=== PATIENT | female | born 1955 | race Caucasian/White ===

== ENCOUNTER 2016-03-13 13:41 | Inpatient (IN) | payer OTHER ==
[2016-03-13 16:01] VITALS: BMI 24.9
--- NOTE | 2016-03-13 17:02 | History and Physical Report ---
History of Present Illnes - History of Present Illness Reason for Visit: Rehab services s/p Right CVA with left sided residual deficets History of Present Illness: 60-year-old white female who on January 31, 2016 developed sudden left-sided weakness associated with slurred speech. Patient was felt to have an acute CVA. Patient was transferred to the trauma. Strokes. On arrival at a strokes. Patient subsequently developed a complete left-sided hemiplegia associated with mental status changes. 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 Patient subsequently underwent an emergent thrombectomy. This was successful. However patient subsequently had an intraventicular and basal ganglia hemorrhage. 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 An EVD was placed for management of her increase intercranial pressure. This was removed on February 06. patient subsequently developing meningitis and was placed on Vancomycin and meropenem which was finished on Feb 16. Patient was transfered to [facility] in [place] for rehab services. Family wishes for the patient to be closeer to home and was transferred to this institution for further rehab services. It is her goal to be able to return home with help from her . - Past Medical History Cardiac: AFIB (intermittent), HTN Heme/Onc: Cancer (right sided breast cancer, in remission for 20 years) Psych: Depression - Past Surgical History Past Surgical History: Other (lumpectomy bilateral, Right tonsilectomy) - Past Social History Smoke: # pack years (20), Quit (trying to quit) Alcohol: None Drugs: None Lives: With Family Domestic Violence: Negative - Health Maintenance Health Maintenance: Cholesterol Influenza Vaccine: Current for this Influenza Season Pneumonia Vaccine: Yes Resuscitation Status: Resusciation Status Resuscitation Status Full Code - Unable to Obtain History Unable to Obtain: No Review of Systems - Review of Systems Constitutional: Fever (feels slighly feverish), Weakness (left side, Upper> Lower extremity). negative: Chills Eyes: pain (right lat abd area). negative: vision change ENT: negative: Ear Pain, Ear Discharge, Nose Pain, Nose Congestion, Mouth Pain, Mouth Swelling Respiratory: negative: Cough, Dry, Shortness of Breath, Hemoptysis, SOB with Excertion, Pleuritic Pain Cardiovascular: negative: Chest Pain, Palpitations, Orthopnea, Light Headedness Gastrointestinal: negative: Nausea, Vomiting, Abdominal Pain, Diarrhea, Constipation, Melena, Hematochezia Genitourinary: negative: Dysuria, Frequency, Incontinence, Hematuria Musculoskeletal: negative: Neck Pain, Back Pain Skin: negative: Rash, Lesions Neurological: Weakness, Incoordination, Change in Speech. negative: Numbness, Confusion, Seizures - Medications/Allergies Allergies/Adverse Reactions: Allergies Allergy/AdvReac Type Severity Reaction Status Date / Time No Known Allergies Allergy Verified 03/13/16 14:58 Home Medications: Home Medications Acetaminophen [Tylenol] 650 mg PO Q4 PRN 03/13/16 Aspirin [Staci] 81 mg PO DAILY 03/13/16 Atorvastatin Calcium 20 mg PO 1700 03/13/16 Bromocriptine Mesylate [Parlodel] 5 mg PO Q8 03/13/16 Cholecalciferol [Vitamin D-3] 5,000 unit PO DAILY 03/13/16 Docusate Sodium [Colace] 100 mg PO DAILY 03/13/16 Gabapentin 300 mg PO TID 03/13/16 Losartan Potassium [Cozaar] 25 mg PO D 03/13/16 Megestrol Acetate [Megace] 40 mg PO D 03/13/16 Nystatin Cream [Mycostatin] 30 gm TP TID 03/13/16 Nystatin Powder [Nystop] 15 gm TP TID 03/13/16 Paroxetine HCl 20 mg PO D 03/13/16 Polyethylene Glycol 3350 [Miralax] 17 gm PO 1100 03/13/16 Tramadol HCl [Ultram] 50 mg PO Q6 PRN 03/13/16 Current Inpatient Medications: Current Inpatient Medications Acetaminophen (Tylenol) 650 mg PO Q4 PRN PRN Reason: PAIN OR TEMPERATURE > 101 Aspirin (Aspirin) [address] [facility] Atorvastatin Calcium (Lipitor) [address] [facility] Cholecalciferol (Vitamin D-3) 5,[address] [facility] Docusate Sodium (Colace) [address] [facility] Gabapentin (Neurontin) [address] [facility] Losartan Potassium (Cozaar) [address] [facility] Megestrol Acetate (Megace) [address] [facility] Nystatin (Mycostatin) appl TP TID [facility] Paroxetine HCl (Paxil) [address] [facility] Polyethylene Glycol (Miralax) 17 gm PO 1100 [facility] Tramadol HCl (Ultram) 50 mg PO Q6 PRN PRN Reason: PAIN Exam - Exam Vital Signs: Vital Signs (72 hours) 12/02/16 12/02/16 14:35 14:54 Temperature 97.5 F L 97.5 F L Pulse Rate [ 76 76 Right Pulse ox] Respiratory 20 20 Rate Blood Pressure 103/62 103/62 [Right Arm] O2 Sat by Pulse 95 95 Oximetry General: Alert, Oriented to Person, Oriented to Place, Oriented to Time, Cooperative. No: No acute distress HEENT: Atraumatic, Mouth Mucous membr. moist/[place], Nose Mucous membr. moist/[place] , Edentulous, Hearing Grossly Normal. No: PERRLA (right pupil enlarged), Pharyngeal Erythema, Tonsillar Exudate, Tonsillar Swelling Neck: Normal Range of Motion. No: Stridor, Rigidity, Lymphadenopathy Carotids: WNL Thyroid: WNL Lungs: Clear to auscultation, Normal air movement, Speaks full Sentences. No: Respiratory Distress, Wheezes, Rales, Rhonchi Cardiovascular: Regular rate, Normal S1, Normal S2, No murmurs. No: Atrial Fib , [place]rail Flutter Murmur: No: Systolic Murmur Abdomen: Normal bowel sounds, Soft, No tenderness, No hepatospenomegaly, No masses Integumentary: Normal, [place], Warm, Normal Turgor Extremities: Normal pulses, Other (clubbing noted). No: No cyanosis, No edema Neurological: Normal speech, Normal tone, Left Sided Weakness (LUE 2/5motor strength with tuckpointer,elbow flex, 3/5elbow extension shoulder girdle; 4/5 LLE) Psych/Mental Status: Mental status NL, Mood NL, Appropriate Affect, Intact Judgment Assessment/Plan - Assessment/Plan (1) Intermittent atrial fibrillation Status: Acute Current Visit: Yes Assessment: Has been advised by neurology that no anticoagulation therapy for one month other then ASA, then will reassess. Patient appears to be in NSR at this time. A fib is beleived to the the precipitating factor for her CVA. (2) Anemia Status: Acute Current Visit: No Qualifiers: Anemia type: unspecified type Qualified Code(s): D64.9 - Anemia, unspecified Assessment: Will recheck CBC on Wednesday and consider further work-up at that time (3) CVA (cerebral vascular accident) Status: Acute Current Visit: No (4) Depression Status: Acute Current Visit: No Qualifiers: Depression Type: major depressive disorder Major depression recurrence: single episode Major depression episode severity: mild Assessment: Patient appears to be doing well at this time with no suicidal thoughts or intent. (5) Dysphagia Status: Acute Current Visit: No (6) Hypertension Status: Acute Current Visit: No Assessment: Will continue home medications and monitor VTE Assessment - RISK FACTOR SCORE VTE RISK FACTOR SCORES: AGE 40-60 YEARS, ANTICIPATED BED CONFINEMENT OR IMMOBILIZATION > 24 HOURS - RISK VTE MODERATE RISK: SCORE OF 2 (RISK PROXIMAL DVT 2-4%) PROPHYAXIS NEEDED (ASA therapy only at this time per neurology recommendations)
[2016-03-13] MEDS: GABAPENTIN 300 MG CAPSULE PO SCH (17:50)
[2016-03-13] MEDS: traMADol HCL 50 MG TABLET PO PRN (17:50)
[2016-03-13] MEDS: ACETAMINOPHEN 325 MG TABLET PO PRN (17:50)
[2016-03-13] MEDS ORDERED: NYSTATIN CREAM 100,000 UNIT/GM 15GM TP SCH (18:00)
[2016-03-13] MEDS: ATORVASTATIN CALCIUM 80 MG TABLET PO SCH (19:50)
[2016-03-14] MEDS: PARoxetine HCL 10 MG TABLET PO SCH (08:49)
[2016-03-14] MEDS: ASPIRIN 81 MG CHEW TAB PO SCH (08:49)
[2016-03-14] MEDS: LOSARTAN POTASSIUM 50 MG TABLET PO SCH (08:49)
[2016-03-14] MEDS: CHOLECALCIFEROL 1,000 UNIT TABLET PO SCH (08:49)
[2016-03-14] MEDS: DOCUSATE SODIUM 100 MG CAPSULE PO SCH (08:50)
[2016-03-14] MEDS: GABAPENTIN 300 MG CAPSULE PO SCH ×3 (08:53→17:28)
[2016-03-14] MEDS ORDERED: NYSTATIN CREAM 100,000 UNIT/GM 15GM TP PRN (08:55)
[2016-03-14] MEDS: MEGESTROL ACETATE 40 MG/ML PO SCH (09:30)
[2016-03-14] MEDS: POLYETHYLENE GLYCOL 3350 17 GM POWD.PACK PO SCH (14:17)
[2016-03-14] MEDS: ACETAMINOPHEN 325 MG TABLET PO PRN (14:20)
[2016-03-14] MEDS: traMADol HCL 50 MG TABLET PO PRN (14:21)
[2016-03-14] MEDS: ATORVASTATIN CALCIUM 80 MG TABLET PO SCH (20:58)
[2016-03-15] MEDS: traMADol HCL 50 MG TABLET PO PRN ×2 (09:25→18:05)
[2016-03-15] MEDS: MEGESTROL ACETATE 40 MG/ML PO SCH (09:26)
[2016-03-15] MEDS: ACETAMINOPHEN 325 MG TABLET PO PRN ×2 (09:26→18:05)
[2016-03-15] MEDS: LOSARTAN POTASSIUM 50 MG TABLET PO SCH (09:31)
[2016-03-15] MEDS: CHOLECALCIFEROL 1,000 UNIT TABLET PO SCH (09:31)
[2016-03-15] MEDS: GABAPENTIN 300 MG CAPSULE PO SCH ×3 (09:31→18:03)
[2016-03-15] MEDS: ASPIRIN 81 MG CHEW TAB PO SCH (09:31)
[2016-03-15] MEDS: PARoxetine HCL 10 MG TABLET PO SCH (09:32)
[2016-03-15] MEDS: DOCUSATE SODIUM 100 MG CAPSULE PO SCH (09:32)
[2016-03-15] MEDS: POLYETHYLENE GLYCOL 3350 17 GM POWD.PACK PO SCH (09:32)
[2016-03-15] MEDS: ATORVASTATIN CALCIUM 80 MG TABLET PO SCH (18:03)
[2016-03-16 06:44] LABS: BASOPHILS % 0.4 (0.0-1.5); LYMPHOCYTES # 1.7 # k/uL (0.6-4.0); MEAN CORPUSCULAR HEMOGLOBIN 25.8 pg (28.0-34.0); MONOCYTES # 0.2 # k/uL (0.0-0.9); MONOCYTES % 3.7 % (0.0-11.0); NEUTROPHILS # 4.6 # k/uL (1.4-7.7)
[2016-03-16 07:09] LABS: eGFR (African) > 60; eGFR (Non-African) > 60
[2016-03-16] MEDS: ACETAMINOPHEN 325 MG TABLET PO PRN ×2 (09:45→17:32)
[2016-03-16] MEDS: traMADol HCL 50 MG TABLET PO PRN ×2 (09:45→17:32)
[2016-03-16] MEDS: LOSARTAN POTASSIUM 50 MG TABLET PO SCH (09:46)
[2016-03-16] MEDS: MEGESTROL ACETATE 40 MG/ML PO SCH (09:46)
[2016-03-16] MEDS: PARoxetine HCL 10 MG TABLET PO SCH (09:46)
[2016-03-16] MEDS: GABAPENTIN 300 MG CAPSULE PO SCH ×3 (09:46→17:32)
[2016-03-16] MEDS: CHOLECALCIFEROL 1,000 UNIT TABLET PO SCH (09:46)
[2016-03-16] MEDS: DOCUSATE SODIUM 100 MG CAPSULE PO SCH (09:46)
[2016-03-16] MEDS: ASPIRIN 81 MG CHEW TAB PO SCH (09:46)
[2016-03-16] MEDS: POLYETHYLENE GLYCOL 3350 17 GM POWD.PACK PO SCH (10:41)
[2016-03-16] MEDS: ATORVASTATIN CALCIUM 80 MG TABLET PO SCH (21:27)
[2016-03-17] MEDS: traMADol HCL 50 MG TABLET PO PRN ×2 (08:00→20:17)
[2016-03-17] MEDS: DOCUSATE SODIUM 100 MG CAPSULE PO SCH (08:01)
[2016-03-17] MEDS: ASPIRIN 81 MG CHEW TAB PO SCH (08:01)
[2016-03-17] MEDS: LOSARTAN POTASSIUM 50 MG TABLET PO SCH (08:01)
[2016-03-17] MEDS: PARoxetine HCL 10 MG TABLET PO SCH (08:01)
[2016-03-17] MEDS: CHOLECALCIFEROL 1,000 UNIT TABLET PO SCH (08:01)
[2016-03-17] MEDS: GABAPENTIN 300 MG CAPSULE PO SCH ×3 (08:02→18:00)
[2016-03-17] MEDS: MEGESTROL ACETATE 40 MG/ML PO SCH (08:02)
[2016-03-17] MEDS: POLYETHYLENE GLYCOL 3350 17 GM POWD.PACK PO SCH (10:44)
[2016-03-17] MEDS: ACETAMINOPHEN 325 MG TABLET PO PRN (12:59)
[2016-03-17] MEDS: ATORVASTATIN CALCIUM 80 MG TABLET PO SCH (20:16)
[2016-03-18] MEDS: ASPIRIN 81 MG CHEW TAB PO SCH (08:32)
[2016-03-18] MEDS: LOSARTAN POTASSIUM 50 MG TABLET PO SCH (08:33)
[2016-03-18] MEDS: DOCUSATE SODIUM 100 MG CAPSULE PO SCH (08:33)
[2016-03-18] MEDS: MEGESTROL ACETATE 40 MG/ML PO SCH (08:39)
[2016-03-18] MEDS: PARoxetine HCL 10 MG TABLET PO SCH (08:40)
[2016-03-18] MEDS: CHOLECALCIFEROL 1,000 UNIT TABLET PO SCH (08:40)
[2016-03-18] MEDS: GABAPENTIN 300 MG CAPSULE PO SCH ×3 (08:40→18:10)
[2016-03-18] MEDS: POLYETHYLENE GLYCOL 3350 17 GM POWD.PACK PO SCH (12:42)
[2016-03-18] MEDS: traMADol HCL 50 MG TABLET PO PRN (18:10)
[2016-03-18] MEDS: ACETAMINOPHEN 325 MG TABLET PO PRN (18:11)
[2016-03-18] MEDS: ATORVASTATIN CALCIUM 80 MG TABLET PO SCH (20:35)
[2016-03-19] MEDS: MEGESTROL ACETATE 40 MG/ML PO SCH (08:39)
[2016-03-19] MEDS: DOCUSATE SODIUM 100 MG CAPSULE PO SCH (08:40)
[2016-03-19] MEDS: ASPIRIN 81 MG CHEW TAB PO SCH (08:40)
[2016-03-19] MEDS: LOSARTAN POTASSIUM 50 MG TABLET PO SCH (08:40)
[2016-03-19] MEDS: GABAPENTIN 300 MG CAPSULE PO SCH ×3 (08:41→17:40)
[2016-03-19] MEDS: CHOLECALCIFEROL 1,000 UNIT TABLET PO SCH (08:42)
[2016-03-19] MEDS: PARoxetine HCL 10 MG TABLET PO SCH (08:42)
[2016-03-19] MEDS: POLYETHYLENE GLYCOL 3350 17 GM POWD.PACK PO SCH (11:04)
[2016-03-19] MEDS: traMADol HCL 50 MG TABLET PO PRN ×2 (11:08→13:28)
[2016-03-19] MEDS: ACETAMINOPHEN 325 MG TABLET PO PRN (13:27)
[2016-03-19] MEDS: ATORVASTATIN CALCIUM 80 MG TABLET PO SCH (20:20)
[2016-03-20] MEDS: ASPIRIN 81 MG CHEW TAB PO SCH (08:22)
[2016-03-20] MEDS: DOCUSATE SODIUM 100 MG CAPSULE PO SCH (08:22)
[2016-03-20] MEDS: LOSARTAN POTASSIUM 50 MG TABLET PO SCH (08:22)
[2016-03-20] MEDS: GABAPENTIN 300 MG CAPSULE PO SCH ×3 (08:23→17:28)
[2016-03-20] MEDS: MEGESTROL ACETATE 40 MG/ML PO SCH (08:23)
[2016-03-20] MEDS: PARoxetine HCL 10 MG TABLET PO SCH (08:24)
[2016-03-20] MEDS: CHOLECALCIFEROL 1,000 UNIT TABLET PO SCH (08:24)
[2016-03-20] MEDS: ACETAMINOPHEN 325 MG TABLET PO PRN ×2 (12:44→17:30)
[2016-03-20] MEDS: POLYETHYLENE GLYCOL 3350 17 GM POWD.PACK PO SCH (12:44)
[2016-03-20] MEDS: traMADol HCL 50 MG TABLET PO PRN (17:31)
[2016-03-20] MEDS: ATORVASTATIN CALCIUM 80 MG TABLET PO SCH (20:06)
[2016-03-21] MEDS: ACETAMINOPHEN 325 MG TABLET PO PRN ×2 (10:06→18:27)
[2016-03-21] MEDS: traMADol HCL 50 MG TABLET PO PRN ×2 (10:06→18:27)
[2016-03-21] MEDS: PARoxetine HCL 10 MG TABLET PO SCH (10:07)
[2016-03-21] MEDS: DOCUSATE SODIUM 100 MG CAPSULE PO SCH (10:07)
[2016-03-21] MEDS: LOSARTAN POTASSIUM 50 MG TABLET PO SCH (10:08)
[2016-03-21] MEDS: ASPIRIN 81 MG CHEW TAB PO SCH (10:08)
[2016-03-21] MEDS: CHOLECALCIFEROL 1,000 UNIT TABLET PO SCH (10:08)
[2016-03-21] MEDS: GABAPENTIN 300 MG CAPSULE PO SCH ×3 (10:08→18:27)
[2016-03-21] MEDS: MEGESTROL ACETATE 40 MG/ML PO SCH (10:09)
[2016-03-21] MEDS: POLYETHYLENE GLYCOL 3350 17 GM POWD.PACK PO SCH (10:47)
[2016-03-21] MEDS: ATORVASTATIN CALCIUM 80 MG TABLET PO SCH (20:03)
[2016-03-22] MEDS: GABAPENTIN 300 MG CAPSULE PO SCH ×3 (08:51→18:14)
[2016-03-22] MEDS: PARoxetine HCL 10 MG TABLET PO SCH (08:51)
[2016-03-22] MEDS: LOSARTAN POTASSIUM 50 MG TABLET PO SCH (08:51)
[2016-03-22] MEDS: ASPIRIN 81 MG CHEW TAB PO SCH (08:52)
[2016-03-22] MEDS: MEGESTROL ACETATE 40 MG/ML PO SCH (08:52)
[2016-03-22] MEDS: traMADol HCL 50 MG TABLET PO PRN (08:52)
[2016-03-22] MEDS: ACETAMINOPHEN 325 MG TABLET PO PRN (08:52)
[2016-03-22] MEDS: CHOLECALCIFEROL 1,000 UNIT TABLET PO SCH (08:52)
[2016-03-22] MEDS: DOCUSATE SODIUM 100 MG CAPSULE PO SCH (08:52)
[2016-03-22] MEDS: POLYETHYLENE GLYCOL 3350 17 GM POWD.PACK PO SCH (12:17)
[2016-03-22] MEDS: ATORVASTATIN CALCIUM 80 MG TABLET PO SCH (20:05)
[2016-03-23] MEDS: CHOLECALCIFEROL 1,000 UNIT TABLET PO SCH (09:25)
[2016-03-23] MEDS: PARoxetine HCL 10 MG TABLET PO SCH (09:25)
[2016-03-23] MEDS: DOCUSATE SODIUM 100 MG CAPSULE PO SCH (09:25)
[2016-03-23] MEDS: LOSARTAN POTASSIUM 50 MG TABLET PO SCH (09:25)
[2016-03-23] MEDS: ASPIRIN 81 MG CHEW TAB PO SCH (09:25)
[2016-03-23] MEDS: MEGESTROL ACETATE 40 MG/ML PO SCH (09:25)
[2016-03-23] MEDS: GABAPENTIN 300 MG CAPSULE PO SCH ×3 (09:25→17:48)
[2016-03-23] MEDS: POLYETHYLENE GLYCOL 3350 17 GM POWD.PACK PO SCH (12:32)
[2016-03-23] MEDS: ATORVASTATIN CALCIUM 80 MG TABLET PO SCH (20:00)
[2016-03-24] MEDS: ASPIRIN 81 MG CHEW TAB PO SCH (08:28)
[2016-03-24] MEDS: CHOLECALCIFEROL 1,000 UNIT TABLET PO SCH (08:28)
[2016-03-24] MEDS: DOCUSATE SODIUM 100 MG CAPSULE PO SCH (08:28)
[2016-03-24] MEDS: GABAPENTIN 300 MG CAPSULE PO SCH ×3 (08:28→18:02)
[2016-03-24] MEDS: LOSARTAN POTASSIUM 50 MG TABLET PO SCH (08:29)
[2016-03-24] MEDS: PARoxetine HCL 10 MG TABLET PO SCH (08:29)
[2016-03-24] MEDS: MEGESTROL ACETATE 40 MG/ML PO SCH (08:30)
[2016-03-24] MEDS: POLYETHYLENE GLYCOL 3350 17 GM POWD.PACK PO SCH (11:19)
[2016-03-24] MEDS: ACETAMINOPHEN 325 MG TABLET PO PRN (18:03)
[2016-03-24] MEDS: traMADol HCL 50 MG TABLET PO PRN (18:03)
[2016-03-24] MEDS: ATORVASTATIN CALCIUM 80 MG TABLET PO SCH (20:14)
[2016-03-25] MEDS: ACETAMINOPHEN 325 MG TABLET PO PRN (08:03)
[2016-03-25] MEDS: traMADol HCL 50 MG TABLET PO PRN (08:03)
[2016-03-25] MEDS: CHOLECALCIFEROL 1,000 UNIT TABLET PO SCH (08:04)
[2016-03-25] MEDS: GABAPENTIN 300 MG CAPSULE PO SCH ×3 (08:05→18:07)
[2016-03-25] MEDS: MEGESTROL ACETATE 40 MG/ML PO SCH (08:05)
[2016-03-25] MEDS: ASPIRIN 81 MG CHEW TAB PO SCH (08:05)
[2016-03-25] MEDS: LOSARTAN POTASSIUM 50 MG TABLET PO SCH (08:05)
[2016-03-25] MEDS: DOCUSATE SODIUM 100 MG CAPSULE PO SCH (08:05)
[2016-03-25] MEDS: PARoxetine HCL 10 MG TABLET PO SCH (08:05)
[2016-03-25] MEDS: POLYETHYLENE GLYCOL 3350 17 GM POWD.PACK PO SCH (11:20)
[2016-03-25] MEDS: ATORVASTATIN CALCIUM 80 MG TABLET PO SCH (20:34)
[2016-03-26] MEDS: LOSARTAN POTASSIUM 50 MG TABLET PO SCH (09:07)
[2016-03-26] MEDS: ACETAMINOPHEN 325 MG TABLET PO PRN ×3 (09:07→17:42)
[2016-03-26] MEDS: GABAPENTIN 300 MG CAPSULE PO SCH ×3 (09:07→17:42)
[2016-03-26] MEDS: PARoxetine HCL 10 MG TABLET PO SCH (09:07)
[2016-03-26] MEDS: DOCUSATE SODIUM 100 MG CAPSULE PO SCH (09:07)
[2016-03-26] MEDS: CHOLECALCIFEROL 1,000 UNIT TABLET PO SCH (09:08)
[2016-03-26] MEDS: POLYETHYLENE GLYCOL 3350 17 GM POWD.PACK PO SCH (09:08)
[2016-03-26] MEDS: MEGESTROL ACETATE 40 MG/ML PO SCH (09:08)
[2016-03-26] MEDS: ASPIRIN 81 MG CHEW TAB PO SCH (09:08)
--- NOTE | 2016-03-26 13:24 | Inpatient Progress Note ---
Subjective - Required Recertification Statement I anticipate X number of days because-include discharge plan: 2 weeks - Review of Systems Events since last encounter: Patient was transferring to the commode today when she got her feet tripped up and fell. Sustained abrasion to the left forehead and bilateral knees. No other injuries noted. Patient states that she has had a slight headache. CT scan shows no acute changes. Feels that she is making some progress with PT and OT. Objective - Exam Vitals and I&O: Vital Signs Temp 98.2 F 03/26/16 09:00 Pulse 78 03/26/16 09:00 Resp 20 03/26/16 09:00 BP 114/64 03/26/16 09:00 Pulse Ox 97 03/26/16 09:00 Intake & Output 03/25/16 03/26/16 03/26/16 23:59 11:59 23:59 Intake Total 1320 240 100 Output Total 1 1 Balance 1319 239 100 Intake: Oral 1320 240 100 Output: Stool 1 1 Other: Voiding Method Toilet Toilet # Voids 2 2 # Bowel Movements 0 General: Alert, Oriented to Person, Oriented to Place, Oriented to Time, Cooperative Neck: Supple Lungs: Clear to auscultation, Normal air movement, Speaks full Sentences Cardiovascular: Regular rate, Normal S1, Normal S2, No murmurs Abdomen: Normal bowel sounds, Soft, No tenderness, No hepatospenomegaly Skin: Other (superficial bruising to the left forehead and knees bilateral. ) Psych/Mental Status: Mental status NL, Mood NL, Intact Judgment - Results Results: Laboratory Results WBC 6.80 K/ul (4.00-12.00) 03/16/16 06:20 RBC 3.77 M/ul (3.90-5.20) L 03/16/16 06:20 Hgb 9.8 g/dL (12.0-16.0) L 03/16/16 06:20 Hct 32.1 % (34.5-46.5) L 03/16/16 06:20 MCV 85.0 fl (80.0-100.0) 03/16/16 06:20 MCH 25.8 pg (28.0-34.0) L 03/16/16 06:20 MCHC 30.4 g/dL (30.0-36.0) 03/16/16 06:20 RDW 13.2 % (11.3-14.3) 03/16/16 06:20 Plt Count 381 K/mm3 (130-400) 03/16/16 06:20 Neut % (Auto) 67.1 % (39.0-79.0) 03/16/16 06:20 Lymph % (Auto) 25.1 % (16.0-50.0) 03/16/16 06:20 [place] % (Auto) 3.7 % (0.0-11.0) 03/16/16 06:20 Eos % (Auto) 2.0 % (0.0-6.8) 03/16/16 06:20 Baso % (Auto) 0.4 (0.0-1.5) 03/16/16 06:20 Neut # 4.6 # k/uL (1.4-7.7) 03/16/16 06:20 Lymph # 1.7 # k/uL (0.6-4.0) 03/16/16 06:20 [place] # 0.2 # k/uL (0.0-0.9) 03/16/16 06:20 Eos # 0.1 # k/uL (0.0-0.6) 03/16/16 06:20 Baso # 0.0 # k/uL (0.0-0.5) 03/16/16 06:20 Reactive Lymphs % 1.7 % (0.0-5.0) 03/16/16 06:20 Reactive Lymphs # 0.1 # k/uL (0.0-0.8) 03/16/16 06:20 Sodium 141 mmol/L (136-145) 03/16/16 06:20 Potassium 4.5 mmol/L (3.5-5.0) 03/16/16 06:20 Chloride 104 mmol/L (98-110) 03/16/16 06:20 Carbon Dioxide 28 mmol/L (20-32) 03/16/16 06:20 BUN 14 mg/dL (10-26) 03/16/16 06:20 Creatinine 0.5 mg/dL (0.4-1.5) 03/16/16 06:20 Estimated Creat Clear 158 03/16/16 06:20 Est GFR ( Amer) > 60 (60-) 03/16/16 06:20 Est GFR (Non-Af Amer) > 60 (60-) 03/16/16 06:20 Glucose 87 mg/dL (70-99) 03/16/16 06:20 Calcium 9.6 mg/dL (8.5-10.5) 03/16/16 06:20 Total Bilirubin 0.2 mg/dL (0.2-1.2) 03/16/16 06:20 AST 19 U/L (0-41) 03/16/16 06:20 ALT 24 U/L (0-45) 03/16/16 06:20 Alkaline Phosphatase 81 U/L (46-116) 03/16/16 06:20 Total Protein 6.1 g/dL (6.0-8.5) 03/16/16 06:20 Albumin 3.9 g/dL (3.0-5.5) 03/16/16 06:20 Assessment/Plan - Assessment/Plan (1) Intermittent atrial fibrillation Status: Acute Current Visit: Yes Assessment: Appears in NSR (2) Anemia Status: Acute Current Visit: No Qualifiers: Anemia type: unspecified type Qualified Code(s): D64.9 - Anemia, unspecified Assessment: HGB 9.8. Will recheck next week. (3) CVA (cerebral vascular accident) Status: Acute Current Visit: No Assessment: Stable, no new symptoms (4) Depression Status: Acute Current Visit: No Qualifiers: Depression Type: major depressive disorder Major depression recurrence: single episode Major depression episode severity: mild Assessment: stable, continue present meds (5) Hypertension Status: Acute Current Visit: No Assessment: stable, continue with present meds
--- NOTE | 2016-03-26 13:30 | Inpatient Progress Note ---
Subjective - Required Recertification Statement I anticipate X number of days because-include discharge plan: 30 - Review of Systems Events since last encounter: Patient seems to be doing better at this time. Has had a fall with no injuries. Does feel that she is making some progress with her Pt and OT. No further CVA symptoms noted. Objective - Exam Vitals and I&O: Vital Signs Temp 98.2 F 03/26/16 09:00 Pulse 78 03/26/16 09:00 Resp 20 03/26/16 09:00 BP 114/64 03/26/16 09:00 Pulse Ox 97 03/26/16 09:00 Intake & Output 03/25/16 03/26/16 03/26/16 23:59 11:59 23:59 Intake Total 1320 240 100 Output Total 1 1 Balance 1319 239 100 Intake: Oral 1320 240 100 Output: Stool 1 1 Other: Voiding Method Toilet Toilet # Voids 2 2 # Bowel Movements 0 1 General: Alert, Oriented to Person, Oriented to Place, Oriented to Time, Cooperative Neck: Supple Lungs: Clear to auscultation, Normal air movement, Speaks full Sentences, Respiratory Distress Cardiovascular: Regular rate, Normal S1, Normal S2, No murmurs Abdomen: Normal bowel sounds, Soft, No tenderness Neurological: Left Sided Weakness. No: Normal gait, Normal speech, Strength Equal Bilat (at baeline) Psych/Mental Status: Mental status NL, Mood NL, Appropriate Affect, Intact Judgment - Results Results: Laboratory Results WBC 6.80 K/ul (4.00-12.00) 03/16/16 06:20 RBC 3.77 M/ul (3.90-5.20) L 03/16/16 06:20 Hgb 9.8 g/dL (12.0-16.0) L 03/16/16 06:20 Hct 32.1 % (34.5-46.5) L 03/16/16 06:20 MCV 85.0 fl (80.0-100.0) 03/16/16 06:20 MCH 25.8 pg (28.0-34.0) L 03/16/16 06:20 MCHC 30.4 g/dL (30.0-36.0) 03/16/16 06:20 RDW 13.2 % (11.3-14.3) 03/16/16 06:20 Plt Count 381 K/mm3 (130-400) 03/16/16 06:20 Neut % (Auto) 67.1 % (39.0-79.0) 03/16/16 06:20 Lymph % (Auto) 25.1 % (16.0-50.0) 03/16/16 06:20 [place] % (Auto) 3.7 % (0.0-11.0) 03/16/16 06:20 Eos % (Auto) 2.0 % (0.0-6.8) 03/16/16 06:20 Baso % (Auto) 0.4 (0.0-1.5) 03/16/16 06:20 Neut # 4.6 # k/uL (1.4-7.7) 03/16/16 06:20 Lymph # 1.7 # k/uL (0.6-4.0) 03/16/16 06:20 [place] # 0.2 # k/uL (0.0-0.9) 03/16/16 06:20 Eos # 0.1 # k/uL (0.0-0.6) 03/16/16 06:20 Baso # 0.0 # k/uL (0.0-0.5) 03/16/16 06:20 Reactive Lymphs % 1.7 % (0.0-5.0) 03/16/16 06:20 Reactive Lymphs # 0.1 # k/uL (0.0-0.8) 03/16/16 06:20 Sodium 141 mmol/L (136-145) 03/16/16 06:20 Potassium 4.5 mmol/L (3.5-5.0) 03/16/16 06:20 Chloride 104 mmol/L (98-110) 03/16/16 06:20 Carbon Dioxide 28 mmol/L (20-32) 03/16/16 06:20 BUN 14 mg/dL (10-26) 03/16/16 06:20 Creatinine 0.5 mg/dL (0.4-1.5) 03/16/16 06:20 Estimated Creat Clear 158 03/16/16 06:20 Est GFR ( Amer) > 60 (60-) 03/16/16 06:20 Est GFR (Non-Af Amer) > 60 (60-) 03/16/16 06:20 Glucose 87 mg/dL (70-99) 03/16/16 06:20 Calcium 9.6 mg/dL (8.5-10.5) 03/16/16 06:20 Total Bilirubin 0.2 mg/dL (0.2-1.2) 03/16/16 06:20 AST 19 U/L (0-41) 03/16/16 06:20 ALT 24 U/L (0-45) 03/16/16 06:20 Alkaline Phosphatase 81 U/L (46-116) 03/16/16 06:20 Total Protein 6.1 g/dL (6.0-8.5) 03/16/16 06:20 Albumin 3.9 g/dL (3.0-5.5) 03/16/16 06:20 Assessment/Plan - Assessment/Plan (1) Intermittent atrial fibrillation Status: Acute Current Visit: Yes Assessment: stable, appears to be in NSR (2) Anemia Status: Acute Current Visit: No Qualifiers: Anemia type: unspecified type Qualified Code(s): D64.9 - Anemia, unspecified Assessment: Appears to be stable will, recheck in one month (3) CVA (cerebral vascular accident) Status: Acute Current Visit: No Assessment: stable, no change in symptoms (4) Depression Status: Acute Current Visit: No Qualifiers: Depression Type: major depressive disorder Major depression recurrence: single episode Major depression episode severity: mild Plan: stable (5) Hypertension Status: Acute Current Visit: No Assessment: stable
--- NOTE | 2016-03-26 13:32 | Inpatient Progress Note ---
Subjective - Required Recertification Statement I anticipate X number of days because-include discharge plan: 3 weeks - Review of Systems Events since last encounter: Patient seems to be doing well, voices no complaints. Neuor symptoms are stable , PT and OT going well. Is having BM. General: Denies: Chills Neurological: Weakness, Incoordination. Denies: Change in Speech, Confusion Objective - Exam Vitals and I&O: Vital Signs Temp 98.2 F 03/26/16 09:00 Pulse 78 03/26/16 09:00 Resp 20 03/26/16 09:00 BP 114/64 03/26/16 09:00 Pulse Ox 97 03/26/16 09:00 Intake & Output 03/25/16 03/26/16 03/26/16 23:59 11:59 23:59 Intake Total 1320 240 100 Output Total 1 1 Balance 1319 239 100 Intake: Oral 1320 240 100 Output: Stool 1 1 Other: Voiding Method Toilet Toilet # Voids 2 2 # Bowel Movements 0 1 General: Alert, Oriented to Person, Oriented to Place, Oriented to Time, Cooperative HEENT: Atraumatic, PERRLA, EOMI, Mouth Mucous membr. moist/[place], Nose Mucous membr. moist/[place] Neck: Supple, No JVD, No thyromegaly Lungs: Clear to auscultation, Normal air movement, Speaks full Sentences Cardiovascular: Regular rate, Normal S1, Normal S2, No murmurs Abdomen: Normal bowel sounds, Soft, No tenderness, No hepatospenomegaly, No masses Extremities: No edema Skin: Normal, [place], Warm, Dry Neurological: Cranial nerves 3-12 NL, Left Sided Weakness (at baseline) Psych/Mental Status: Mental status NL, Mood NL, Appropriate Affect, Intact Judgment - Results Results: Laboratory Results WBC 6.80 K/ul (4.00-12.00) 03/16/16 06:20 RBC 3.77 M/ul (3.90-5.20) L 03/16/16 06:20 Hgb 9.8 g/dL (12.0-16.0) L 03/16/16 06:20 Hct 32.1 % (34.5-46.5) L 03/16/16 06:20 MCV 85.0 fl (80.0-100.0) 03/16/16 06:20 MCH 25.8 pg (28.0-34.0) L 03/16/16 06:20 MCHC 30.4 g/dL (30.0-36.0) 03/16/16 06:20 RDW 13.2 % (11.3-14.3) 03/16/16 06:20 Plt Count 381 K/mm3 (130-400) 03/16/16 06:20 Neut % (Auto) 67.1 % (39.0-79.0) 03/16/16 06:20 Lymph % (Auto) 25.1 % (16.0-50.0) 03/16/16 06:20 [place] % (Auto) 3.7 % (0.0-11.0) 03/16/16 06:20 Eos % (Auto) 2.0 % (0.0-6.8) 03/16/16 06:20 Baso % (Auto) 0.4 (0.0-1.5) 03/16/16 06:20 Neut # 4.6 # k/uL (1.4-7.7) 03/16/16 06:20 Lymph # 1.7 # k/uL (0.6-4.0) 03/16/16 06:20 [place] # 0.2 # k/uL (0.0-0.9) 03/16/16 06:20 Eos # 0.1 # k/uL (0.0-0.6) 03/16/16 06:20 Baso # 0.0 # k/uL (0.0-0.5) 03/16/16 06:20 Reactive Lymphs % 1.7 % (0.0-5.0) 03/16/16 06:20 Reactive Lymphs # 0.1 # k/uL (0.0-0.8) 03/16/16 06:20 Sodium 141 mmol/L (136-145) 03/16/16 06:20 Potassium 4.5 mmol/L (3.5-5.0) 03/16/16 06:20 Chloride 104 mmol/L (98-110) 03/16/16 06:20 Carbon Dioxide 28 mmol/L (20-32) 03/16/16 06:20 BUN 14 mg/dL (10-26) 03/16/16 06:20 Creatinine 0.5 mg/dL (0.4-1.5) 03/16/16 06:20 Estimated Creat Clear 158 03/16/16 06:20 Est GFR ( Amer) > 60 (60-) 03/16/16 06:20 Est GFR (Non-Af Amer) > 60 (60-) 03/16/16 06:20 Glucose 87 mg/dL (70-99) 03/16/16 06:20 Calcium 9.6 mg/dL (8.5-10.5) 03/16/16 06:20 Total Bilirubin 0.2 mg/dL (0.2-1.2) 03/16/16 06:20 AST 19 U/L (0-41) 03/16/16 06:20 ALT 24 U/L (0-45) 03/16/16 06:20 Alkaline Phosphatase 81 U/L (46-116) 03/16/16 06:20 Total Protein 6.1 g/dL (6.0-8.5) 03/16/16 06:20 Albumin 3.9 g/dL (3.0-5.5) 03/16/16 06:20 Assessment/Plan - Assessment/Plan (1) CVA (cerebral vascular accident) Status: Acute Current Visit: No Assessment: stable (2) Intermittent atrial fibrillation Status: Acute Current Visit: Yes Assessment: stable, no tachy or bradycardia (3) Anemia Status: Acute Current Visit: No Qualifiers: Anemia type: unspecified type Qualified Code(s): D64.9 - Anemia, unspecified Assessment: Hgb 9.8, will monitor (4) Depression Status: Acute Current Visit: No Qualifiers: Depression Type: major depressive disorder Major depression recurrence: single episode Major depression episode severity: mild Assessment: stable (5) Hypertension Status: Acute Current Visit: No Assessment: stable
--- NOTE | 2016-03-26 14:44 | Diagnostic Imaging Report ---
[facility] [address] [facility] [address] [address] Report Submission Date: Mar 26, 2016 12:18:31 PM BROKER Patient Study Name: MILEY MARTINEZ Date: Mar 26, 2016 11:44:53 AM BROKER Modality Type: CT\SR Gender: F Description: CT BRAIN W/O CONTRAST : 53 Institution: [facility] Physician: TOÑO TALAMANTES Head CT without contrast Clinical history: Fall. Head injury. Technique: CT examination of the brain is performed in contiguous axial slices without the use of contrast. Sagittal and coronal reconstructions are performed by the technologist. Findings: The fourth ventricle lies in a normal midline position. The ventricles and sulci are prominent secondary to atrophy. There is an old infarct in the right basal ganglia. There is no hypodense or hyperdense mass or intracranial hemorrhage. The visualized mastoid air cells are clear. Small retention cyst is seen in the floor of the left maxillary sinus. The paranasal sinuses are otherwise clear. Impression: 1. Atrophy. 2. Old infarct right basal ganglia. 3. No acute intracranial changes. Electronically signed on Mar 26, 2016 12:18:31 PM BROKER by: Carter ANDERSON
[2016-03-26] MEDS: ATORVASTATIN CALCIUM 80 MG TABLET PO SCH (20:10)
[2016-03-27] MEDS: ASPIRIN 81 MG CHEW TAB PO SCH (08:11)
[2016-03-27] MEDS: LOSARTAN POTASSIUM 50 MG TABLET PO SCH (08:12)
[2016-03-27] MEDS: DOCUSATE SODIUM 100 MG CAPSULE PO SCH (08:12)
[2016-03-27] MEDS: CHOLECALCIFEROL 1,000 UNIT TABLET PO SCH (08:13)
[2016-03-27] MEDS: GABAPENTIN 300 MG CAPSULE PO SCH ×3 (08:13→17:25)
[2016-03-27] MEDS: PARoxetine HCL 10 MG TABLET PO SCH (08:13)
[2016-03-27] MEDS: traMADol HCL 50 MG TABLET PO PRN ×2 (08:15→20:11)
[2016-03-27] MEDS: MEGESTROL ACETATE 40 MG/ML PO SCH (08:16)
[2016-03-27] MEDS: POLYETHYLENE GLYCOL 3350 17 GM POWD.PACK PO SCH (11:24)
[2016-03-27] MEDS: ATORVASTATIN CALCIUM 80 MG TABLET PO SCH (20:11)
[2016-03-27] MEDS: ACETAMINOPHEN 325 MG TABLET PO PRN (20:11)
[2016-03-28] MEDS: GABAPENTIN 300 MG CAPSULE PO SCH ×3 (08:06→17:15)
[2016-03-28] MEDS: DOCUSATE SODIUM 100 MG CAPSULE PO SCH (08:07)
[2016-03-28] MEDS: CHOLECALCIFEROL 1,000 UNIT TABLET PO SCH (08:07)
[2016-03-28] MEDS: MEGESTROL ACETATE 40 MG/ML PO SCH (08:07)
[2016-03-28] MEDS: ASPIRIN 81 MG CHEW TAB PO SCH (08:07)
[2016-03-28] MEDS: LOSARTAN POTASSIUM 50 MG TABLET PO SCH (08:07)
[2016-03-28] MEDS: PARoxetine HCL 10 MG TABLET PO SCH (08:07)
[2016-03-28] MEDS: POLYETHYLENE GLYCOL 3350 17 GM POWD.PACK PO SCH (10:21)
[2016-03-28] MEDS: ATORVASTATIN CALCIUM 80 MG TABLET PO SCH (20:01)
[2016-03-28] MEDS: ACETAMINOPHEN 325 MG TABLET PO PRN (20:01)
[2016-03-28] MEDS: traMADol HCL 50 MG TABLET PO PRN (20:02)
[2016-03-29] MEDS: ASPIRIN 81 MG CHEW TAB PO SCH (08:32)
[2016-03-29] MEDS: DOCUSATE SODIUM 100 MG CAPSULE PO SCH (08:32)
[2016-03-29] MEDS: LOSARTAN POTASSIUM 50 MG TABLET PO SCH (08:33)
[2016-03-29] MEDS: CHOLECALCIFEROL 1,000 UNIT TABLET PO SCH (08:34)
[2016-03-29] MEDS: PARoxetine HCL 10 MG TABLET PO SCH (08:34)
[2016-03-29] MEDS: MEGESTROL ACETATE 40 MG/ML PO SCH (08:34)
[2016-03-29] MEDS: GABAPENTIN 300 MG CAPSULE PO SCH ×3 (08:34→17:43)
[2016-03-29] MEDS: POLYETHYLENE GLYCOL 3350 17 GM POWD.PACK PO SCH (11:25)
[2016-03-29] MEDS: ATORVASTATIN CALCIUM 80 MG TABLET PO SCH (19:38)
[2016-03-29] MEDS: traMADol HCL 50 MG TABLET PO PRN (19:38)
[2016-03-30] MEDS: GABAPENTIN 300 MG CAPSULE PO SCH ×3 (08:47→18:05)
[2016-03-30] MEDS: LOSARTAN POTASSIUM 50 MG TABLET PO SCH (08:47)
[2016-03-30] MEDS: CHOLECALCIFEROL 1,000 UNIT TABLET PO SCH (08:47)
[2016-03-30] MEDS: PARoxetine HCL 10 MG TABLET PO SCH (08:47)
[2016-03-30] MEDS: ACETAMINOPHEN 325 MG TABLET PO PRN (08:47)
[2016-03-30] MEDS: DOCUSATE SODIUM 100 MG CAPSULE PO SCH (08:47)
[2016-03-30] MEDS: ASPIRIN 81 MG CHEW TAB PO SCH (08:48)
[2016-03-30] MEDS: POLYETHYLENE GLYCOL 3350 17 GM POWD.PACK PO SCH (08:48)
[2016-03-30] MEDS: MEGESTROL ACETATE 40 MG/ML PO SCH (08:48)
[2016-03-30] MEDS: traMADol HCL 50 MG TABLET PO PRN (20:52)
[2016-03-30] MEDS: ATORVASTATIN CALCIUM 80 MG TABLET PO SCH (20:53)
[2016-03-31] MEDS: GABAPENTIN 300 MG CAPSULE PO SCH ×3 (09:23→17:22)
[2016-03-31] MEDS: DOCUSATE SODIUM 100 MG CAPSULE PO SCH (09:23)
[2016-03-31] MEDS: LOSARTAN POTASSIUM 50 MG TABLET PO SCH (09:23)
[2016-03-31] MEDS: PARoxetine HCL 10 MG TABLET PO SCH (09:23)
[2016-03-31] MEDS: CHOLECALCIFEROL 1,000 UNIT TABLET PO SCH (09:23)
[2016-03-31] MEDS: MEGESTROL ACETATE 40 MG/ML PO SCH (09:24)
[2016-03-31] MEDS: ASPIRIN 81 MG CHEW TAB PO SCH (09:24)
[2016-03-31] MEDS: POLYETHYLENE GLYCOL 3350 17 GM POWD.PACK PO SCH (10:40)
[2016-03-31] MEDS: ATORVASTATIN CALCIUM 80 MG TABLET PO SCH (20:10)
[2016-04-01] MEDS: DOCUSATE SODIUM 100 MG CAPSULE PO SCH (08:23)
[2016-04-01] MEDS: LOSARTAN POTASSIUM 50 MG TABLET PO SCH (08:23)
[2016-04-01] MEDS: ASPIRIN 81 MG CHEW TAB PO SCH (08:23)
[2016-04-01] MEDS: MEGESTROL ACETATE 40 MG/ML PO SCH (08:25)
[2016-04-01] MEDS: GABAPENTIN 300 MG CAPSULE PO SCH ×3 (08:25→16:49)
[2016-04-01] MEDS: CHOLECALCIFEROL 1,000 UNIT TABLET PO SCH (08:26)
[2016-04-01] MEDS: PARoxetine HCL 10 MG TABLET PO SCH (08:26)
[2016-04-01] MEDS: POLYETHYLENE GLYCOL 3350 17 GM POWD.PACK PO SCH (11:19)
[2016-04-01] MEDS: ATORVASTATIN CALCIUM 80 MG TABLET PO SCH (20:07)
[2016-04-01] MEDS: ACETAMINOPHEN 325 MG TABLET PO PRN (20:08)
[2016-04-01] MEDS: traMADol HCL 50 MG TABLET PO PRN (20:08)
[2016-04-02] MEDS: ACETAMINOPHEN 325 MG TABLET PO PRN (02:12)
[2016-04-02] MEDS: traMADol HCL 50 MG TABLET PO PRN (02:12)
[2016-04-02] MEDS: DOCUSATE SODIUM 100 MG CAPSULE PO SCH (08:43)
[2016-04-02] MEDS: ASPIRIN 81 MG CHEW TAB PO SCH (08:43)
[2016-04-02] MEDS: MEGESTROL ACETATE 40 MG/ML PO SCH (08:44)
[2016-04-02] MEDS: LOSARTAN POTASSIUM 50 MG TABLET PO SCH (08:44)
[2016-04-02] MEDS: CHOLECALCIFEROL 1,000 UNIT TABLET PO SCH (08:45)
[2016-04-02] MEDS: PARoxetine HCL 10 MG TABLET PO SCH (08:45)
[2016-04-02] MEDS: GABAPENTIN 300 MG CAPSULE PO SCH ×3 (08:45→17:16)
[2016-04-02] MEDS: POLYETHYLENE GLYCOL 3350 17 GM POWD.PACK PO SCH (11:14)
[2016-04-02] MEDS: ATORVASTATIN CALCIUM 80 MG TABLET PO SCH (19:31)
[2016-04-03] MEDS: ASPIRIN 81 MG CHEW TAB PO SCH (08:49)
[2016-04-03] MEDS: DOCUSATE SODIUM 100 MG CAPSULE PO SCH (08:50)
[2016-04-03] MEDS: LOSARTAN POTASSIUM 50 MG TABLET PO SCH (08:50)
[2016-04-03] MEDS: PARoxetine HCL 10 MG TABLET PO SCH (08:51)
[2016-04-03] MEDS: MEGESTROL ACETATE 40 MG/ML PO SCH (08:51)
[2016-04-03] MEDS: GABAPENTIN 300 MG CAPSULE PO SCH ×3 (08:51→17:43)
[2016-04-03] MEDS: CHOLECALCIFEROL 1,000 UNIT TABLET PO SCH (08:52)
[2016-04-03] MEDS: POLYETHYLENE GLYCOL 3350 17 GM POWD.PACK PO SCH (12:07)
[2016-04-03] MEDS: ATORVASTATIN CALCIUM 80 MG TABLET PO SCH (19:44)
[2016-04-03] MEDS: traMADol HCL 50 MG TABLET PO PRN (19:45)
[2016-04-04] MEDS ORDERED: DOCUSATE SODIUM 100 MG CAPSULE ONE (05:21)
[2016-04-04] MEDS: DOCUSATE SODIUM 100 MG CAPSULE PO SCH (09:39)
[2016-04-04] MEDS: LOSARTAN POTASSIUM 50 MG TABLET PO SCH (09:39)
[2016-04-04] MEDS: ASPIRIN 81 MG CHEW TAB PO SCH (09:39)
[2016-04-04] MEDS: GABAPENTIN 300 MG CAPSULE PO SCH ×3 (09:40→18:03)
[2016-04-04] MEDS: PARoxetine HCL 10 MG TABLET PO SCH (09:40)
[2016-04-04] MEDS: CHOLECALCIFEROL 1,000 UNIT TABLET PO SCH (09:41)
[2016-04-04] MEDS: MEGESTROL ACETATE 40 MG/ML PO SCH (09:46)
[2016-04-04] MEDS: POLYETHYLENE GLYCOL 3350 17 GM POWD.PACK PO SCH (11:19)
[2016-04-04] MEDS: ATORVASTATIN CALCIUM 80 MG TABLET PO SCH (19:33)
[2016-04-04] MEDS: traMADol HCL 50 MG TABLET PO PRN (19:41)
[2016-04-04] MEDS: ACETAMINOPHEN 325 MG TABLET PO PRN (21:10)
[2016-04-05] MEDS: LOSARTAN POTASSIUM 50 MG TABLET PO SCH (08:24)
[2016-04-05] MEDS: GABAPENTIN 300 MG CAPSULE PO SCH ×3 (08:24→17:34)
[2016-04-05] MEDS: DOCUSATE SODIUM 100 MG CAPSULE PO SCH (08:24)
[2016-04-05] MEDS: ASPIRIN 81 MG CHEW TAB PO SCH (08:24)
[2016-04-05] MEDS: PARoxetine HCL 10 MG TABLET PO SCH (08:24)
[2016-04-05] MEDS: MEGESTROL ACETATE 40 MG/ML PO SCH (08:26)
[2016-04-05] MEDS: CHOLECALCIFEROL 1,000 UNIT TABLET PO SCH (08:26)
[2016-04-05] MEDS: traMADol HCL 50 MG TABLET PO PRN (08:41)
[2016-04-05] MEDS: POLYETHYLENE GLYCOL 3350 17 GM POWD.PACK PO SCH (10:51)
[2016-04-05] MEDS: ATORVASTATIN CALCIUM 80 MG TABLET PO SCH (19:30)
[2016-04-06] MEDS: LOSARTAN POTASSIUM 50 MG TABLET PO SCH (08:15)
[2016-04-06] MEDS: ASPIRIN 81 MG CHEW TAB PO SCH (08:15)
[2016-04-06] MEDS: DOCUSATE SODIUM 100 MG CAPSULE PO SCH (08:15)
[2016-04-06] MEDS: MEGESTROL ACETATE 40 MG/ML PO SCH (08:16)
[2016-04-06] MEDS: GABAPENTIN 300 MG CAPSULE PO SCH ×3 (08:17→18:03)
[2016-04-06] MEDS: PARoxetine HCL 10 MG TABLET PO SCH (08:18)
[2016-04-06] MEDS: CHOLECALCIFEROL 1,000 UNIT TABLET PO SCH (08:18)
[2016-04-06] MEDS: traMADol HCL 50 MG TABLET PO PRN ×2 (08:20→20:11)
[2016-04-06] MEDS: ACETAMINOPHEN 325 MG TABLET PO PRN ×2 (08:31→20:11)
[2016-04-06] MEDS: POLYETHYLENE GLYCOL 3350 17 GM POWD.PACK PO SCH (10:17)
[2016-04-06] MEDS: ATORVASTATIN CALCIUM 80 MG TABLET PO SCH (20:11)
[2016-04-07] MEDS: ASPIRIN 81 MG CHEW TAB PO SCH (08:47)
[2016-04-07] MEDS: CHOLECALCIFEROL 1,000 UNIT TABLET PO SCH (08:47)
[2016-04-07] MEDS: GABAPENTIN 300 MG CAPSULE PO SCH ×3 (08:48→17:37)
[2016-04-07] MEDS: LOSARTAN POTASSIUM 50 MG TABLET PO SCH (08:48)
[2016-04-07] MEDS: ACETAMINOPHEN 325 MG TABLET PO PRN ×2 (08:49→20:04)
[2016-04-07] MEDS: DOCUSATE SODIUM 100 MG CAPSULE PO SCH (08:49)
[2016-04-07] MEDS: POLYETHYLENE GLYCOL 3350 17 GM POWD.PACK PO SCH (08:49)
[2016-04-07] MEDS: MEGESTROL ACETATE 40 MG/ML PO SCH (08:49)
[2016-04-07] MEDS: PARoxetine HCL 10 MG TABLET PO SCH (08:50)
[2016-04-07] MEDS: traMADol HCL 50 MG TABLET PO PRN (20:04)
[2016-04-07] MEDS: ATORVASTATIN CALCIUM 80 MG TABLET PO SCH (20:04)
[2016-04-08] MEDS: traMADol HCL 50 MG TABLET PO PRN ×2 (08:43→20:16)
[2016-04-08] MEDS: ACETAMINOPHEN 325 MG TABLET PO PRN ×3 (08:43→20:16)
[2016-04-08] MEDS: GABAPENTIN 300 MG CAPSULE PO SCH ×3 (08:44→17:33)
[2016-04-08] MEDS: DOCUSATE SODIUM 100 MG CAPSULE PO SCH (08:44)
[2016-04-08] MEDS: CHOLECALCIFEROL 1,000 UNIT TABLET PO SCH (08:44)
[2016-04-08] MEDS: PARoxetine HCL 10 MG TABLET PO SCH (08:44)
[2016-04-08] MEDS: LOSARTAN POTASSIUM 50 MG TABLET PO SCH (08:44)
[2016-04-08] MEDS: POLYETHYLENE GLYCOL 3350 17 GM POWD.PACK PO SCH (08:45)
[2016-04-08] MEDS: ASPIRIN 81 MG CHEW TAB PO SCH (08:45)
[2016-04-08] MEDS: MEGESTROL ACETATE 40 MG/ML PO SCH (08:45)
--- NOTE | 2016-04-08 09:30 | Inpatient Progress Note ---
Subjective - Required Recertification Statement I anticipate X number of days because-include discharge plan: 14 - Review of Systems Events since last encounter: Patient continues to participate in therapy well. Has not had any further falls. Patient feels that she is making some progress toward her goals. No further CVA symptoms noted. Pulmonary: Denies: Dyspnea, Cough Cardiovascular: Denies: Chest Pain Gastrointestinal: Denies: Nausea, Vomiting, Abdominal Pain Genitourinary: Denies: Dysuria Neurological: Weakness (stable) Objective - Exam Vitals and I&O: Vital Signs Temp 98.0 F 04/07/16 21:00 Pulse 84 04/07/16 21:00 Resp 16 04/07/16 21:00 BP 118/70 04/07/16 21:00 Pulse Ox 93 04/07/16 21:00 Intake & Output 04/07/16 04/07/16 04/08/16 11:59 23:59 11:59 Intake Total 450 360 Balance 450 360 Weight 73.028 kg Intake: Oral 450 360 Other: Voiding Method Toilet Toilet # Voids 2 3 General: Alert, Oriented to Person, Oriented to Place, Oriented to Time, Cooperative, No acute distress Neck: Supple Lungs: Clear to auscultation, Normal air movement, Speaks full Sentences. No: Respiratory Distress, Wheezes, Rales, Rhonchi Cardiovascular: Normal S1, Normal S2, No murmurs, Irregularly Irregular Abdomen: Normal bowel sounds, Soft, No tenderness - Results Results: Laboratory Results WBC 6.80 K/ul (4.00-12.00) 03/16/16 06:20 RBC 3.77 M/ul (3.90-5.20) L 03/16/16 06:20 Hgb 9.8 g/dL (12.0-16.0) L 03/16/16 06:20 Hct 32.1 % (34.5-46.5) L 03/16/16 06:20 MCV 85.0 fl (80.0-100.0) 03/16/16 06:20 MCH 25.8 pg (28.0-34.0) L 03/16/16 06:20 MCHC 30.4 g/dL (30.0-36.0) 03/16/16 06:20 RDW 13.2 % (11.3-14.3) 03/16/16 06:20 Plt Count 381 K/mm3 (130-400) 03/16/16 06:20 Neut % (Auto) 67.1 % (39.0-79.0) 03/16/16 06:20 Lymph % (Auto) 25.1 % (16.0-50.0) 03/16/16 06:20 [place] % (Auto) 3.7 % (0.0-11.0) 03/16/16 06:20 Eos % (Auto) 2.0 % (0.0-6.8) 03/16/16 06:20 Baso % (Auto) 0.4 (0.0-1.5) 03/16/16 06:20 Neut # 4.6 # k/uL (1.4-7.7) 03/16/16 06:20 Lymph # 1.7 # k/uL (0.6-4.0) 03/16/16 06:20 [place] # 0.2 # k/uL (0.0-0.9) 03/16/16 06:20 Eos # 0.1 # k/uL (0.0-0.6) 03/16/16 06:20 Baso # 0.0 # k/uL (0.0-0.5) 03/16/16 06:20 Reactive Lymphs % 1.7 % (0.0-5.0) 03/16/16 06:20 Reactive Lymphs # 0.1 # k/uL (0.0-0.8) 03/16/16 06:20 Sodium 141 mmol/L (136-145) 03/16/16 06:20 Potassium 4.5 mmol/L (3.5-5.0) 03/16/16 06:20 Chloride 104 mmol/L (98-110) 03/16/16 06:20 Carbon Dioxide 28 mmol/L (20-32) 03/16/16 06:20 BUN 14 mg/dL (10-26) 03/16/16 06:20 Creatinine 0.5 mg/dL (0.4-1.5) 03/16/16 06:20 Estimated Creat Clear 158 03/16/16 06:20 Est GFR ( Amer) > 60 (60-) 03/16/16 06:20 Est GFR (Non-Af Amer) > 60 (60-) 03/16/16 06:20 Glucose 87 mg/dL (70-99) 03/16/16 06:20 Calcium 9.6 mg/dL (8.5-10.5) 03/16/16 06:20 Total Bilirubin 0.2 mg/dL (0.2-1.2) 03/16/16 06:20 AST 19 U/L (0-41) 03/16/16 06:20 ALT 24 U/L (0-45) 03/16/16 06:20 Alkaline Phosphatase 81 U/L (46-116) 03/16/16 06:20 Total Protein 6.1 g/dL (6.0-8.5) 03/16/16 06:20 Albumin 3.9 g/dL (3.0-5.5) 03/16/16 06:20 Assessment/Plan - Assessment/Plan (1) Intermittent atrial fibrillation Status: Acute Current Visit: Yes Assessment: stable with no tachy or lauri cardia (2) Anemia Status: Acute Current Visit: No Qualifiers: Anemia type: unspecified type Qualified Code(s): D64.9 - Anemia, unspecified Assessment: stable (3) CVA (cerebral vascular accident) Status: Acute Current Visit: No Assessment: stable, no new symptoms (4) Depression Status: Acute Current Visit: No Qualifiers: Depression Type: major depressive disorder Major depression recurrence: single episode Major depression episode severity: mild Assessment: stable, no suicidal thoughts (5) Hypertension Status: Acute Current Visit: No Assessment: stable
[2016-04-08] MEDS: ATORVASTATIN CALCIUM 80 MG TABLET PO SCH (20:13)
[2016-04-09] MEDS: GABAPENTIN 300 MG CAPSULE PO SCH ×3 (11:27→17:42)
[2016-04-09] MEDS: POLYETHYLENE GLYCOL 3350 17 GM POWD.PACK PO SCH (11:27)
[2016-04-09] MEDS: PARoxetine HCL 10 MG TABLET PO SCH (11:28)
[2016-04-09] MEDS: MEGESTROL ACETATE 40 MG/ML PO SCH (11:28)
[2016-04-09] MEDS: LOSARTAN POTASSIUM 50 MG TABLET PO SCH (11:28)
[2016-04-09] MEDS: ASPIRIN 81 MG CHEW TAB PO SCH (11:29)
[2016-04-09] MEDS: DOCUSATE SODIUM 100 MG CAPSULE PO SCH (11:29)
[2016-04-09] MEDS: CHOLECALCIFEROL 1,000 UNIT TABLET PO SCH (11:29)
[2016-04-09] MEDS: ACETAMINOPHEN 325 MG TABLET PO PRN (17:42)
[2016-04-09] MEDS: ATORVASTATIN CALCIUM 80 MG TABLET PO SCH (19:50)
[2016-04-09] MEDS: traMADol HCL 50 MG TABLET PO PRN (19:50)
[2016-04-10] MEDS: CHOLECALCIFEROL 1,000 UNIT TABLET PO SCH (08:26)
[2016-04-10] MEDS: DOCUSATE SODIUM 100 MG CAPSULE PO SCH (08:27)
[2016-04-10] MEDS: PARoxetine HCL 10 MG TABLET PO SCH (08:27)
[2016-04-10] MEDS: LOSARTAN POTASSIUM 50 MG TABLET PO SCH (08:27)
[2016-04-10] MEDS: MEGESTROL ACETATE 40 MG/ML PO SCH (08:27)
[2016-04-10] MEDS: ASPIRIN 81 MG CHEW TAB PO SCH (08:27)
[2016-04-10] MEDS: GABAPENTIN 300 MG CAPSULE PO SCH ×3 (08:27→17:34)
[2016-04-10] MEDS: POLYETHYLENE GLYCOL 3350 17 GM POWD.PACK PO SCH (08:28)
[2016-04-10] MEDS: ATORVASTATIN CALCIUM 80 MG TABLET PO SCH (20:26)
[2016-04-10] MEDS: ACETAMINOPHEN 325 MG TABLET PO PRN (20:26)
[2016-04-10] MEDS: traMADol HCL 50 MG TABLET PO PRN (20:26)
[2016-04-11] MEDS: DOCUSATE SODIUM 100 MG CAPSULE PO SCH (08:46)
[2016-04-11] MEDS: LOSARTAN POTASSIUM 50 MG TABLET PO SCH (08:46)
[2016-04-11] MEDS: ASPIRIN 81 MG CHEW TAB PO SCH (08:46)
[2016-04-11] MEDS: PARoxetine HCL 10 MG TABLET PO SCH (08:48)
[2016-04-11] MEDS: CHOLECALCIFEROL 1,000 UNIT TABLET PO SCH (08:49)
[2016-04-11] MEDS: GABAPENTIN 300 MG CAPSULE PO SCH ×3 (08:50→17:53)
[2016-04-11] MEDS: MEGESTROL ACETATE 40 MG/ML PO SCH (08:58)
[2016-04-11] MEDS: POLYETHYLENE GLYCOL 3350 17 GM POWD.PACK PO SCH (10:51)
[2016-04-11] MEDS ORDERED: GABAPENTIN 100 MG CAPSULE ONE (16:47)
[2016-04-11] MEDS: ATORVASTATIN CALCIUM 80 MG TABLET PO SCH (20:49)
[2016-04-11] MEDS: ACETAMINOPHEN 325 MG TABLET PO PRN (20:49)
[2016-04-11] MEDS: traMADol HCL 50 MG TABLET PO PRN (20:49)
[2016-04-12] MEDS ORDERED: GABAPENTIN 100 MG CAPSULE ONE (04:56)
[2016-04-12] MEDS: ASPIRIN 81 MG CHEW TAB PO SCH (08:37)
[2016-04-12] MEDS: LOSARTAN POTASSIUM 50 MG TABLET PO SCH (08:38)
[2016-04-12] MEDS: DOCUSATE SODIUM 100 MG CAPSULE PO SCH (08:38)
[2016-04-12] MEDS: GABAPENTIN 300 MG CAPSULE PO SCH ×3 (08:39→17:58)
[2016-04-12] MEDS: PARoxetine HCL 10 MG TABLET PO SCH (08:40)
[2016-04-12] MEDS: CHOLECALCIFEROL 1,000 UNIT TABLET PO SCH (08:40)
[2016-04-12] MEDS: MEGESTROL ACETATE 40 MG/ML PO SCH (08:47)
[2016-04-12] MEDS: POLYETHYLENE GLYCOL 3350 17 GM POWD.PACK PO SCH (11:42)
[2016-04-12] MEDS: ATORVASTATIN CALCIUM 80 MG TABLET PO SCH (19:35)
[2016-04-12] MEDS: ACETAMINOPHEN 325 MG TABLET PO PRN (19:35)
[2016-04-12] MEDS: traMADol HCL 50 MG TABLET PO PRN (19:36)
[2016-04-13] MEDS ORDERED: GABAPENTIN 100 MG CAPSULE ONE ×2 (03:36→12:09)
[2016-04-13] MEDS: PARoxetine HCL 10 MG TABLET PO SCH (09:34)
[2016-04-13] MEDS: CHOLECALCIFEROL 1,000 UNIT TABLET PO SCH (09:35)
[2016-04-13] MEDS: ASPIRIN 81 MG CHEW TAB PO SCH (09:35)
[2016-04-13] MEDS: GABAPENTIN 300 MG CAPSULE PO SCH ×3 (09:35→17:59)
[2016-04-13] MEDS: LOSARTAN POTASSIUM 50 MG TABLET PO SCH (09:35)
[2016-04-13] MEDS: DOCUSATE SODIUM 100 MG CAPSULE PO SCH (09:35)
[2016-04-13] MEDS: MEGESTROL ACETATE 40 MG/ML PO SCH (09:36)
[2016-04-13] MEDS: POLYETHYLENE GLYCOL 3350 17 GM POWD.PACK PO SCH (12:30)
[2016-04-13] MEDS: ACETAMINOPHEN 325 MG TABLET PO PRN (14:32)
[2016-04-13] MEDS: traMADol HCL 50 MG TABLET PO PRN ×2 (14:32→21:53)
[2016-04-13] MEDS: ATORVASTATIN CALCIUM 80 MG TABLET PO SCH (19:41)
[2016-04-13] MEDS ORDERED: traMADol HCL 50 MG TABLET ONE (21:39)
[2016-04-14] MEDS: ASPIRIN 81 MG CHEW TAB PO SCH (08:41)
[2016-04-14] MEDS: DOCUSATE SODIUM 100 MG CAPSULE PO SCH (08:41)
[2016-04-14] MEDS: LOSARTAN POTASSIUM 50 MG TABLET PO SCH (08:41)
[2016-04-14] MEDS: MEGESTROL ACETATE 40 MG/ML PO SCH (08:42)
[2016-04-14] MEDS: PARoxetine HCL 10 MG TABLET PO SCH (08:42)
[2016-04-14] MEDS: CHOLECALCIFEROL 1,000 UNIT TABLET PO SCH (08:42)
[2016-04-14] MEDS: GABAPENTIN 300 MG CAPSULE PO SCH ×3 (09:00→16:55)
[2016-04-14] MEDS: POLYETHYLENE GLYCOL 3350 17 GM POWD.PACK PO SCH (12:40)
[2016-04-14] MEDS: traMADol HCL 50 MG TABLET PO PRN (20:30)
[2016-04-14] MEDS: ATORVASTATIN CALCIUM 80 MG TABLET PO SCH (20:30)
[2016-04-15 07:39] LABS: BASOPHILS % 0.3 (0.0-1.5); EOSINOPHILS % 3.8 % (0.0-6.8); LYMPHOCYTES # 1.5 # k/uL (0.6-4.0); MEAN CORPUSCULAR HEMOGLOBIN 25.3 pg (28.0-34.0); MONOCYTES # 0.2 # k/uL (0.0-0.9); MONOCYTES % 4.3 % (0.0-11.0); NEUTROPHILS # 3.4 # k/uL (1.4-7.7)
[2016-04-15] MEDS: LOSARTAN POTASSIUM 50 MG TABLET PO SCH (09:24)
[2016-04-15] MEDS: DOCUSATE SODIUM 100 MG CAPSULE PO SCH (09:24)
[2016-04-15] MEDS: ASPIRIN 81 MG CHEW TAB PO SCH (09:24)
[2016-04-15] MEDS: PARoxetine HCL 10 MG TABLET PO SCH (09:25)
[2016-04-15] MEDS: MEGESTROL ACETATE 40 MG/ML PO SCH (09:25)
[2016-04-15] MEDS: CHOLECALCIFEROL 1,000 UNIT TABLET PO SCH (09:25)
[2016-04-15] MEDS: GABAPENTIN 300 MG CAPSULE PO SCH ×3 (09:26→17:15)
[2016-04-15] MEDS: POLYETHYLENE GLYCOL 3350 17 GM POWD.PACK PO SCH (12:32)
[2016-04-15] MEDS: traMADol HCL 50 MG TABLET PO PRN (15:50)
[2016-04-15] MEDS: ACETAMINOPHEN 325 MG TABLET PO PRN (19:57)
[2016-04-15] MEDS: ATORVASTATIN CALCIUM 80 MG TABLET PO SCH (19:57)
[2016-04-16] MEDS: MEGESTROL ACETATE 40 MG/ML PO SCH (08:34)
[2016-04-16] MEDS: PARoxetine HCL 10 MG TABLET PO SCH (08:34)
[2016-04-16] MEDS: CHOLECALCIFEROL 1,000 UNIT TABLET PO SCH (08:34)
[2016-04-16] MEDS: ASPIRIN 81 MG CHEW TAB PO SCH (08:34)
[2016-04-16] MEDS: DOCUSATE SODIUM 100 MG CAPSULE PO SCH (08:34)
[2016-04-16] MEDS: LOSARTAN POTASSIUM 50 MG TABLET PO SCH (08:34)
[2016-04-16] MEDS: GABAPENTIN 300 MG CAPSULE PO SCH ×3 (08:35→17:15)
[2016-04-16] MEDS: POLYETHYLENE GLYCOL 3350 17 GM POWD.PACK PO SCH (12:31)
[2016-04-16] MEDS: traMADol HCL 50 MG TABLET PO PRN (19:56)
[2016-04-16] MEDS: ATORVASTATIN CALCIUM 80 MG TABLET PO SCH (19:56)
[2016-04-17] MEDS: CHOLECALCIFEROL 1,000 UNIT TABLET PO SCH (08:59)
[2016-04-17] MEDS: PARoxetine HCL 10 MG TABLET PO SCH (09:00)
[2016-04-17] MEDS: GABAPENTIN 300 MG CAPSULE PO SCH ×3 (09:00→17:52)
[2016-04-17] MEDS: ASPIRIN 81 MG CHEW TAB PO SCH (09:01)
[2016-04-17] MEDS: LOSARTAN POTASSIUM 50 MG TABLET PO SCH (09:01)
[2016-04-17] MEDS: MEGESTROL ACETATE 40 MG/ML PO SCH (09:01)
[2016-04-17] MEDS: DOCUSATE SODIUM 100 MG CAPSULE PO SCH (09:01)
[2016-04-17] MEDS: traMADol HCL 50 MG TABLET PO PRN ×2 (09:08→19:29)
[2016-04-17] MEDS: POLYETHYLENE GLYCOL 3350 17 GM POWD.PACK PO SCH (13:22)
[2016-04-17] MEDS: ATORVASTATIN CALCIUM 80 MG TABLET PO SCH (19:29)
[2016-04-18] MEDS: DOCUSATE SODIUM 100 MG CAPSULE PO SCH (08:40)
[2016-04-18] MEDS: ASPIRIN 81 MG CHEW TAB PO SCH (08:40)
[2016-04-18] MEDS: LOSARTAN POTASSIUM 50 MG TABLET PO SCH (08:40)
[2016-04-18] MEDS: MEGESTROL ACETATE 40 MG/ML PO SCH (08:41)
[2016-04-18] MEDS: GABAPENTIN 300 MG CAPSULE PO SCH ×3 (08:43→17:51)
[2016-04-18] MEDS: PARoxetine HCL 10 MG TABLET PO SCH (08:43)
[2016-04-18] MEDS: CHOLECALCIFEROL 1,000 UNIT TABLET PO SCH (08:43)
[2016-04-18] MEDS: traMADol HCL 50 MG TABLET PO PRN ×2 (08:48→19:15)
[2016-04-18] MEDS: POLYETHYLENE GLYCOL 3350 17 GM POWD.PACK PO SCH (12:43)
[2016-04-18] MEDS: ATORVASTATIN CALCIUM 80 MG TABLET PO SCH (19:15)
[2016-04-19] MEDS: traMADol HCL 50 MG TABLET PO PRN ×3 (06:02→19:47)
[2016-04-19] MEDS: ACETAMINOPHEN 325 MG TABLET PO PRN (08:33)
[2016-04-19] MEDS: ASPIRIN 81 MG CHEW TAB PO SCH (08:33)
[2016-04-19] MEDS: DOCUSATE SODIUM 100 MG CAPSULE PO SCH (08:33)
[2016-04-19] MEDS: LOSARTAN POTASSIUM 50 MG TABLET PO SCH (08:34)
[2016-04-19] MEDS: MEGESTROL ACETATE 40 MG/ML PO SCH (08:34)
[2016-04-19] MEDS: PARoxetine HCL 10 MG TABLET PO SCH (08:35)
[2016-04-19] MEDS: GABAPENTIN 300 MG CAPSULE PO SCH ×3 (08:35→18:00)
[2016-04-19] MEDS: CHOLECALCIFEROL 1,000 UNIT TABLET PO SCH (08:36)
[2016-04-19] MEDS: POLYETHYLENE GLYCOL 3350 17 GM POWD.PACK PO SCH (12:10)
[2016-04-19] MEDS: ATORVASTATIN CALCIUM 80 MG TABLET PO SCH (19:47)
[2016-04-20] MEDS: traMADol HCL 50 MG TABLET PO PRN ×2 (00:48→20:28)
[2016-04-20] MEDS ORDERED: GABAPENTIN 100 MG CAPSULE ONE ×2 (05:34→12:14)
[2016-04-20] MEDS: LOSARTAN POTASSIUM 50 MG TABLET PO SCH (08:42)
[2016-04-20] MEDS: ASPIRIN 81 MG CHEW TAB PO SCH (08:42)
[2016-04-20] MEDS: DOCUSATE SODIUM 100 MG CAPSULE PO SCH (08:42)
[2016-04-20] MEDS: PARoxetine HCL 10 MG TABLET PO SCH (08:43)
[2016-04-20] MEDS: GABAPENTIN 300 MG CAPSULE PO SCH ×3 (08:43→17:55)
[2016-04-20] MEDS: MEGESTROL ACETATE 40 MG/ML PO SCH (08:43)
[2016-04-20] MEDS: CHOLECALCIFEROL 1,000 UNIT TABLET PO SCH (08:44)
[2016-04-20] MEDS: POLYETHYLENE GLYCOL 3350 17 GM POWD.PACK PO SCH (12:16)
[2016-04-20] MEDS: ATORVASTATIN CALCIUM 80 MG TABLET PO SCH (20:28)
[2016-04-21] MEDS: ASPIRIN 81 MG CHEW TAB PO SCH (08:34)
[2016-04-21] MEDS: LOSARTAN POTASSIUM 50 MG TABLET PO SCH (08:35)
[2016-04-21] MEDS: DOCUSATE SODIUM 100 MG CAPSULE PO SCH (08:35)
[2016-04-21] MEDS: PARoxetine HCL 10 MG TABLET PO SCH (08:36)
[2016-04-21] MEDS: CHOLECALCIFEROL 1,000 UNIT TABLET PO SCH (08:36)
[2016-04-21] MEDS: GABAPENTIN 300 MG CAPSULE PO SCH ×3 (08:36→17:56)
[2016-04-21] MEDS: MEGESTROL ACETATE 40 MG/ML PO SCH (08:36)
[2016-04-21] MEDS: POLYETHYLENE GLYCOL 3350 17 GM POWD.PACK PO SCH (12:53)
[2016-04-21] MEDS: traMADol HCL 50 MG TABLET PO PRN (19:43)
[2016-04-21] MEDS: ATORVASTATIN CALCIUM 80 MG TABLET PO SCH (19:43)
[2016-04-22] MEDS: DOCUSATE SODIUM 100 MG CAPSULE PO SCH (08:42)
[2016-04-22] MEDS: ASPIRIN 81 MG CHEW TAB PO SCH (08:42)
[2016-04-22] MEDS: LOSARTAN POTASSIUM 50 MG TABLET PO SCH (08:43)
[2016-04-22] MEDS: CHOLECALCIFEROL 1,000 UNIT TABLET PO SCH (08:44)
[2016-04-22] MEDS: GABAPENTIN 300 MG CAPSULE PO SCH ×3 (08:44→18:44)
[2016-04-22] MEDS: PARoxetine HCL 10 MG TABLET PO SCH (08:44)
[2016-04-22] MEDS: MEGESTROL ACETATE 40 MG/ML PO SCH (08:47)
[2016-04-22] MEDS: POLYETHYLENE GLYCOL 3350 17 GM POWD.PACK PO SCH (11:20)
[2016-04-22] MEDS: ATORVASTATIN CALCIUM 80 MG TABLET PO SCH (19:39)
[2016-04-23] MEDS: MEGESTROL ACETATE 40 MG/ML PO SCH (09:32)
[2016-04-23] MEDS: DOCUSATE SODIUM 100 MG CAPSULE PO SCH (09:32)
[2016-04-23] MEDS: PARoxetine HCL 10 MG TABLET PO SCH (09:32)
[2016-04-23] MEDS: ASPIRIN 81 MG CHEW TAB PO SCH (09:32)
[2016-04-23] MEDS: LOSARTAN POTASSIUM 50 MG TABLET PO SCH (09:33)
[2016-04-23] MEDS: GABAPENTIN 300 MG CAPSULE PO SCH ×2 (09:33→13:14)
[2016-04-23] MEDS: CHOLECALCIFEROL 1,000 UNIT TABLET PO SCH (09:33)
[2016-04-23] MEDS: POLYETHYLENE GLYCOL 3350 17 GM POWD.PACK PO SCH (12:16)
[2016-04-23 14:30] VITALS: BP 114/62
--- NOTE | 2016-04-25 17:12 | Inpatient Progress Note ---
Subjective - Required Recertification Statement I anticipate X number of days because-include discharge plan: 21 - Review of Systems Events since last encounter: patient seemed to be doing well at this time. Patient does not voice any complaints. Patient is continuing to make some progress with her ambulation and transferring. Patient is participating well with physical and occupational therapy. Objective - Exam Vitals and I&O: Vital Signs Temp 97 F L 04/23/16 12:59 Pulse 91 H 04/23/16 12:59 Resp 18 04/23/16 12:59 BP 114/62 04/23/16 12:59 Pulse Ox 95 04/23/16 12:59 General: Alert, Oriented to Person, Oriented to Place, Oriented to Time, Cooperative Neck: Supple Lungs: Clear to auscultation, Normal air movement, Speaks full Sentences. No: Wheezes, Rales, Rhonchi Cardiovascular: Regular rate, Normal S1, Normal S2 Abdomen: Normal bowel sounds, Soft, No tenderness, No hepatospenomegaly Skin: Normal, [place], Warm Neurological: Other (at baseline). No: Normal gait, Normal speech Psych/Mental Status: Mental status NL, Mood NL, Appropriate Affect, Intact Judgment - Results Results: Laboratory Results WBC 5.40 K/ul (4.00-12.00) 04/15/16 07:10 RBC 4.13 M/ul (3.90-5.20) 04/15/16 07:10 Hgb 10.4 g/dL (12.0-16.0) L 04/15/16 07:10 Hct 35.5 % (34.5-46.5) 04/15/16 07:10 MCV 85.9 fl (80.0-100.0) 04/15/16 07:10 MCH 25.3 pg (28.0-34.0) L 04/15/16 07:10 MCHC 29.4 g/dL (30.0-36.0) L 04/15/16 07:10 RDW 15.5 % (11.3-14.3) H 04/15/16 07:10 Plt Count 328 K/mm3 (130-400) 04/15/16 07:10 Neut % (Auto) 61.9 % (39.0-79.0) 04/15/16 07:10 Lymph % (Auto) 28.3 % (16.0-50.0) 04/15/16 07:10 [place] % (Auto) 4.3 % (0.0-11.0) 04/15/16 07:10 Eos % (Auto) 3.8 % (0.0-6.8) 04/15/16 07:10 Baso % (Auto) 0.3 (0.0-1.5) 04/15/16 07:10 Neut # 3.4 # k/uL (1.4-7.7) 04/15/16 07:10 Lymph # 1.5 # k/uL (0.6-4.0) 04/15/16 07:10 [place] # 0.2 # k/uL (0.0-0.9) 04/15/16 07:10 Eos # 0.2 # k/uL (0.0-0.6) 04/15/16 07:10 Baso # 0.0 # k/uL (0.0-0.5) 04/15/16 07:10 Reactive Lymphs % 1.3 % (0.0-5.0) 04/15/16 07:10 Reactive Lymphs # 0.1 # k/uL (0.0-0.8) 04/15/16 07:10 Sodium 141 mmol/L (136-145) 03/16/16 06:20 Potassium 4.5 mmol/L (3.5-5.0) 03/16/16 06:20 Chloride 104 mmol/L (98-110) 03/16/16 06:20 Carbon Dioxide 28 mmol/L (20-32) 03/16/16 06:20 BUN 14 mg/dL (10-26) 03/16/16 06:20 Creatinine 0.5 mg/dL (0.4-1.5) 03/16/16 06:20 Estimated Creat Clear 158 03/16/16 06:20 Est GFR ( Amer) > 60 (60-) 03/16/16 06:20 Est GFR (Non-Af Amer) > 60 (60-) 03/16/16 06:20 Glucose 87 mg/dL (70-99) 03/16/16 06:20 Calcium 9.6 mg/dL (8.5-10.5) 03/16/16 06:20 Total Bilirubin 0.2 mg/dL (0.2-1.2) 03/16/16 06:20 AST 19 U/L (0-41) 03/16/16 06:20 ALT 24 U/L (0-45) 03/16/16 06:20 Alkaline Phosphatase 81 U/L (46-116) 03/16/16 06:20 Total Protein 6.1 g/dL (6.0-8.5) 03/16/16 06:20 Albumin 3.9 g/dL (3.0-5.5) 03/16/16 06:20 Assessment/Plan - Assessment/Plan (1) Intermittent atrial fibrillation Status: Acute Assessment: stable (2) Anemia Status: Acute Qualifiers: Anemia type: unspecified type Qualified Code(s): D64.9 - Anemia, unspecified Assessment: stable (3) CVA (cerebral vascular accident) Status: Acute Assessment: stable (4) Depression Status: Acute Qualifiers: Depression Type: major depressive disorder Major depression recurrence: single episode Major depression episode severity: mild (5) Hypertension Status: Acute Assessment: stable on home meds
--- NOTE | 2016-04-25 17:16 | Inpatient Progress Note ---
Subjective - Required Recertification Statement I anticipate X number of days because-include discharge plan: 14 - Review of Systems Events since last encounter: patient continued to do well. Patient does not voice any complaints. Objective - Exam Vitals and I&O: Vital Signs Temp 97 F L 04/23/16 12:59 Pulse 91 H 04/23/16 12:59 Resp 18 04/23/16 12:59 BP 114/62 04/23/16 12:59 Pulse Ox 95 04/23/16 12:59 General: Alert, Oriented to Person, Oriented to Place, Oriented to Time, Cooperative, No acute distress Lungs: Clear to auscultation, Normal air movement, Speaks full Sentences. No: Respiratory Distress, Wheezes, Rales, Rhonchi Cardiovascular: Regular rate, Normal S1, Normal S2, No murmurs Abdomen: Normal bowel sounds, Soft, No tenderness Skin: Normal, [place], Warm, Dry Neurological: Normal speech - Results Results: Laboratory Results WBC 5.40 K/ul (4.00-12.00) 04/15/16 07:10 RBC 4.13 M/ul (3.90-5.20) 04/15/16 07:10 Hgb 10.4 g/dL (12.0-16.0) L 04/15/16 07:10 Hct 35.5 % (34.5-46.5) 04/15/16 07:10 MCV 85.9 fl (80.0-100.0) 04/15/16 07:10 MCH 25.3 pg (28.0-34.0) L 04/15/16 07:10 MCHC 29.4 g/dL (30.0-36.0) L 04/15/16 07:10 RDW 15.5 % (11.3-14.3) H 04/15/16 07:10 Plt Count 328 K/mm3 (130-400) 04/15/16 07:10 Neut % (Auto) 61.9 % (39.0-79.0) 04/15/16 07:10 Lymph % (Auto) 28.3 % (16.0-50.0) 04/15/16 07:10 [place] % (Auto) 4.3 % (0.0-11.0) 04/15/16 07:10 Eos % (Auto) 3.8 % (0.0-6.8) 04/15/16 07:10 Baso % (Auto) 0.3 (0.0-1.5) 04/15/16 07:10 Neut # 3.4 # k/uL (1.4-7.7) 04/15/16 07:10 Lymph # 1.5 # k/uL (0.6-4.0) 04/15/16 07:10 [place] # 0.2 # k/uL (0.0-0.9) 04/15/16 07:10 Eos # 0.2 # k/uL (0.0-0.6) 04/15/16 07:10 Baso # 0.0 # k/uL (0.0-0.5) 04/15/16 07:10 Reactive Lymphs % 1.3 % (0.0-5.0) 04/15/16 07:10 Reactive Lymphs # 0.1 # k/uL (0.0-0.8) 04/15/16 07:10 Sodium 141 mmol/L (136-145) 03/16/16 06:20 Potassium 4.5 mmol/L (3.5-5.0) 03/16/16 06:20 Chloride 104 mmol/L (98-110) 03/16/16 06:20 Carbon Dioxide 28 mmol/L (20-32) 03/16/16 06:20 BUN 14 mg/dL (10-26) 03/16/16 06:20 Creatinine 0.5 mg/dL (0.4-1.5) 03/16/16 06:20 Estimated Creat Clear 158 03/16/16 06:20 Est GFR ( Amer) > 60 (60-) 03/16/16 06:20 Est GFR (Non-Af Amer) > 60 (60-) 03/16/16 06:20 Glucose 87 mg/dL (70-99) 03/16/16 06:20 Calcium 9.6 mg/dL (8.5-10.5) 03/16/16 06:20 Total Bilirubin 0.2 mg/dL (0.2-1.2) 03/16/16 06:20 AST 19 U/L (0-41) 03/16/16 06:20 ALT 24 U/L (0-45) 03/16/16 06:20 Alkaline Phosphatase 81 U/L (46-116) 03/16/16 06:20 Total Protein 6.1 g/dL (6.0-8.5) 03/16/16 06:20 Albumin 3.9 g/dL (3.0-5.5) 03/16/16 06:20 Assessment/Plan - Assessment/Plan (1) Gait disturbance Status: Acute Assessment: patient continued to make some progress with physical and occupational therapy. (2) Intermittent atrial fibrillation Status: Acute (3) Hypertension Status: Acute Assessment: stable
--- NOTE | 2016-04-25 17:22 | Inpatient Progress Note ---
Subjective - Required Recertification Statement I anticipate X number of days because-include discharge plan: 7 - Review of Systems Events since last encounter: patient has had a noninjury fall. Patient lost her balance while in the restroom. Patient otherwise states he seems to be doing well. Continue to make some progress. Objective - Exam Vitals and I&O: Vital Signs Temp 97 F L 04/23/16 12:59 Pulse 91 H 04/23/16 12:59 Resp 18 04/23/16 12:59 BP 114/62 04/23/16 12:59 Pulse Ox 95 04/23/16 12:59 General: Alert, Oriented to Person, Oriented to Place, Oriented to Time, Cooperative Lungs: Clear to auscultation, Normal air movement, Speaks full Sentences Abdomen: Normal bowel sounds, Soft, No tenderness. No: Distended, Absent Bowel Sounds Skin: Normal, [place], Warm Neurological: Other (at baseline) Psych/Mental Status: Mental status NL, Mood NL, Intact Judgment - Results Results: Laboratory Results WBC 5.40 K/ul (4.00-12.00) 04/15/16 07:10 RBC 4.13 M/ul (3.90-5.20) 04/15/16 07:10 Hgb 10.4 g/dL (12.0-16.0) L 04/15/16 07:10 Hct 35.5 % (34.5-46.5) 04/15/16 07:10 MCV 85.9 fl (80.0-100.0) 04/15/16 07:10 MCH 25.3 pg (28.0-34.0) L 04/15/16 07:10 MCHC 29.4 g/dL (30.0-36.0) L 04/15/16 07:10 RDW 15.5 % (11.3-14.3) H 04/15/16 07:10 Plt Count 328 K/mm3 (130-400) 04/15/16 07:10 Neut % (Auto) 61.9 % (39.0-79.0) 04/15/16 07:10 Lymph % (Auto) 28.3 % (16.0-50.0) 04/15/16 07:10 [place] % (Auto) 4.3 % (0.0-11.0) 04/15/16 07:10 Eos % (Auto) 3.8 % (0.0-6.8) 04/15/16 07:10 Baso % (Auto) 0.3 (0.0-1.5) 04/15/16 07:10 Neut # 3.4 # k/uL (1.4-7.7) 04/15/16 07:10 Lymph # 1.5 # k/uL (0.6-4.0) 04/15/16 07:10 [place] # 0.2 # k/uL (0.0-0.9) 04/15/16 07:10 Eos # 0.2 # k/uL (0.0-0.6) 04/15/16 07:10 Baso # 0.0 # k/uL (0.0-0.5) 04/15/16 07:10 Reactive Lymphs % 1.3 % (0.0-5.0) 04/15/16 07:10 Reactive Lymphs # 0.1 # k/uL (0.0-0.8) 04/15/16 07:10 Sodium 141 mmol/L (136-145) 03/16/16 06:20 Potassium 4.5 mmol/L (3.5-5.0) 03/16/16 06:20 Chloride 104 mmol/L (98-110) 03/16/16 06:20 Carbon Dioxide 28 mmol/L (20-32) 03/16/16 06:20 BUN 14 mg/dL (10-26) 03/16/16 06:20 Creatinine 0.5 mg/dL (0.4-1.5) 03/16/16 06:20 Estimated Creat Clear 158 03/16/16 06:20 Est GFR ( Amer) > 60 (60-) 03/16/16 06:20 Est GFR (Non-Af Amer) > 60 (60-) 03/16/16 06:20 Glucose 87 mg/dL (70-99) 03/16/16 06:20 Calcium 9.6 mg/dL (8.5-10.5) 03/16/16 06:20 Total Bilirubin 0.2 mg/dL (0.2-1.2) 03/16/16 06:20 AST 19 U/L (0-41) 03/16/16 06:20 ALT 24 U/L (0-45) 03/16/16 06:20 Alkaline Phosphatase 81 U/L (46-116) 03/16/16 06:20 Total Protein 6.1 g/dL (6.0-8.5) 03/16/16 06:20 Albumin 3.9 g/dL (3.0-5.5) 03/16/16 06:20 Assessment/Plan - Assessment/Plan (1) Gait disturbance Status: Acute Assessment: improving (2) Intermittent atrial fibrillation Status: Acute Assessment: stable (3) Hypertension Status: Acute Assessment: stable
--- NOTE | 2016-04-25 17:28 | Discharge Summary ---
Discharge Summary - Discharge Sumary History of Present Illness: 60-year-old white female who on January 31, 2016 developed sudden left-sided weakness associated with slurred speech. Patient was felt to have an acute CVA. Patient was transferred to the trauma. Strokes. On arrival at a strokes. Patient subsequently developed a complete left-sided hemiplegia associated with mental status changes. 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 Patient subsequently underwent an emergent thrombectomy. This was successful. However patient subsequently had an intraventicular and basal ganglia hemorrhage. 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 An EVD was placed for management of her increase intercranial pressure. This was removed on February 06. patient subsequently developing meningitis and was placed on Vancomycin and meropenem which was finished on Feb 16. Patient was transfered to [facility] in [place] for rehab services. Family wishes for the patient to be closeer to home and was transferred to this institution for further rehab services. It is her goal to be able to return home with help from her . Home Medications: Ambulatory Orders Medication Instructions Recorded Acetaminophen [Tylenol] 650 mg PO Q4 PRN 03/13/16 Aspirin [Staci] 81 mg PO DAILY 03/13/16 Atorvastatin Calcium 20 mg PO 1700 03/13/16 Bromocriptine Mesylate [Parlodel] 5 mg PO Q8 03/13/16 Cholecalciferol [Vitamin D-3] 5,000 unit PO DAILY 03/13/16 Docusate Sodium [Colace] 100 mg PO DAILY 03/13/16 Losartan Potassium [Cozaar] 25 mg PO D 03/13/16 Paroxetine HCl 20 mg PO D 03/13/16 Polyethylene Glycol 3350 [Miralax] 17 gm PO 1100 03/13/16 Tramadol HCl [Ultram] 50 mg PO Q6 PRN 03/13/16 Consultations this Visit: None Procedures this Visit: None Allergies/Adverse Reactions: Allergies Allergy/AdvReac Type Severity Reaction Status Date / Time No Known Allergies Allergy Verified 03/13/16 14:58 Discharge Summary: patient did well during her skilled stay. Patient participated well with physical and occupational therapy and did make some improvement with her ambulatory ability and ability to transfer. Patient states that she would not be doing DURING her hospital stay. Patient states that she lost her balance. Patient denies any syncopal or near syncopal episode. Patient did not have any problems with intermittent atrial flutter. Depression remained stable. Patient denies any suicidal ideations or thoughts. Hypertension remained stable on home meds. - Final Diagnosis (1) Gait disturbance Problems: Improved, will continue with home health (2) Intermittent atrial fibrillation Problems: remained stable (3) Hypertension Problems: Stable on home meds (4) CVA (cerebral vascular accident) Problems: No new symptoms (5) Depression Problems: stable
== END 2016-04-23 14:15 | disposition home health service (06) | DRG 66 ==
LOC: SOUTH 14:48
PROVIDERS: ADMIT Family Medicine; ATTEND Family Medicine
DX: I63.9 Cerebral infarction, unspecified (principal); I10 Essential (primary) hypertension; I48.91 Unspecified atrial fibrillation; D64.9 Anemia, unspecified; F32.9 Major depressive disorder, single episode, unspecified; R13.10 Dysphagia, unspecified; Z79.01 Long term (current) use of anticoagulants; Z87.891 Personal history of nicotine dependence; Z85.3 Personal history of malignant neoplasm of breast
CPT/HCPCS: 36415; 70450; 80053; 85025; A9270-GY

== ENCOUNTER 2016-07-29 15:57 | Inpatient (IN) | payer OTHER ==
--- NOTE | 2016-07-29 17:35 | History and Physical Report ---
History of Present Illnes - History of Present Illness Reason for Visit: gait disturbance History of Present Illness: 60yo white female with a history of SVA to the basal ganglia area. Patient present to [facility] ED at [facility] with frequent falls, unsteady gait and lower extremiy pain. 3 week prior to admission patient had fallen and sustained a communated left distal radial fracture. Patient was admitted and treated for fall, no specific etiology found. Patient did have some delirium which is improved, HTN stable, LLE edema negative for DVT. Patient was transfered to this institution for further rehab services. 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: CVA (left basalar area) Heme/Onc: Cancer (right sided breast cancer, in remission for 20 years) Psych: Depression, Other (acute deliruim) - Past Surgical History Past Surgical History: Tonsillectomy (right), Other (lumpectomy bilateral) - Past Family History Mother Family History: (HTN) Father Family History: (Asthma) - Past Social History Smoke: # pack years (20), Quit (trying to quit) Alcohol: None Drugs: None Lives: With Family Domestic Violence: Negative - Health Maintenance Health Maintenance: Cholesterol, Influenza Vaccine, Pneumococcal Vaccine Influenza Vaccine: Current for this Influenza Season Pneumonia Vaccine: Yes (pneumo 23 [id number]) Resuscitation Status: Full Code - Unable to Obtain History Unable to Obtain: No Review of Systems - Review of Systems Constitutional: negative: Fever, Chills, Sweats Eyes: negative: pain ENT: negative: Ear Pain, Ear Discharge, Nose Pain, Nose Discharge, Nose Congestion, Mouth Pain, Throat Pain, Throat Swelling Respiratory: negative: Cough, Shortness of Breath, Hemoptysis, SOB with Excertion, Wheezing Cardiovascular: Edema. negative: Chest Pain, Palpitations, Orthopnea Gastrointestinal: negative: Nausea, Vomiting, Abdominal Pain, Diarrhea, Constipation, Melena, Hematochezia Genitourinary: negative: Dysuria, Frequency, Hematuria Musculoskeletal: negative: Neck Pain, Back Pain Skin: negative: Rash Neurological: Incoordination, Confusion. negative: Weakness, Numbness, Seizures - Medications/Allergies Allergies/Adverse Reactions: Allergies Allergy/AdvReac Type Severity Reaction Status Date / Time HIREN Inhibitors AdvReac Headache Verified 07/29/16 18:06 Exam - Exam General: Oriented to Person, Cooperative. No: Alert (lethagic, tired from trandfer) HEENT: PERRLA, EOMI, Mouth Mucous membr. moist/[place], Edentulous, Hearing Grossly Normal. No: Pharyngeal Erythema Neck: Normal Range of Motion. No: Stridor, Rigidity, Lymphadenopathy Carotids: WNL Thyroid: WNL Lungs: Clear to auscultation, Normal air movement, Speaks full Sentences. No: Respiratory Distress, Wheezes, Rales, Rhonchi Cardiovascular: Regular rate, Normal S1, Normal S2, No murmurs. No: Gallops Abdomen: Normal bowel sounds, Soft, No tenderness, No hepatospenomegaly. No: Distended Integumentary: Normal, [place], Warm, Dry Extremities: No clubbing, No cyanosis, Other (2 plus LLE, short arm cast on the LUE) Neurological: Normal speech, Normal tone, Cranial nerves 3-12 NL, Reflexes 2+, Left Sided Weakness (LUE and LLE). No: Normal gait Psych/Mental Status: Mental status NL Assessment/Plan - Assessment/Plan (1) Left forearm fracture Status: Acute Current Visit: Yes Assessment: continue with short arm cast (2) Edema of left lower extremity Status: Acute Current Visit: Yes Assessment: support stockings, try to keep elevated, Venous doppler has been done to r/o DVT (3) CVA (cerebral vascular accident) Status: Acute Current Visit: No Qualifiers: CVA mechanism: occlusion Laterality of affected vessel: right Assessment: Had a basal gangular CVA last fall, believed to have had another one recently Plan: Will continue with ASA (4) Gait disturbance Status: Acute Current Visit: No Plan: PT and OT consult (5) Hypertension Status: Chronic Current Visit: No Qualifiers: Hypertension type: essential hypertension Qualified Code(s): I10 - Essential (primary) hypertension Assessment: Will continue with home meds and monitor. VTE Assessment - RISK FACTOR SCORE VTE RISK FACTOR SCORES: AGE OVER 60 YEARS, ANTICIPATED BED CONFINEMENT OR IMMOBILIZATION > 24 HOURS - RISK VTE MODERATE RISK: SCORE OF 2 (RISK PROXIMAL DVT 2-4%) PROPHYAXIS NEEDED
[2016-07-29 19:04] VITALS: BMI 26.3
[2016-07-29] MEDS: ENOXAPARIN SODIUM 30 MG/0.3 ML DISP.SYRIN SQ SCH (19:10)
[2016-07-29] MEDS ORDERED: CARVEDILOL 6.25 MG TABLET PO ONE (21:01)
[2016-07-29] MEDS: ATORVASTATIN CALCIUM 80 MG TABLET PO SCH (21:05)
[2016-07-29] MEDS: CARVEDILOL 6.25 MG TABLET PO SCH (21:05)
[2016-07-29] MEDS: rOPINIRole HCL 1 MG TABLET PO SCH (21:07)
[2016-07-29] MEDS: QUEtiapine FUMARATE 25 MG TABLET PO SCH (21:07)
[2016-07-30] MEDS ORDERED: PARoxetine HCL 10 MG TABLET PO ONE (04:52)
[2016-07-30] MEDS ORDERED: LOSARTAN POTASSIUM 50 MG TABLET PO ONE (04:53)
[2016-07-30] MEDS ORDERED: ASPIRIN EC 81 MG TABLET.DR ONE (04:53)
[2016-07-30] MEDS ORDERED: CARVEDILOL 6.25 MG TABLET PO ONE ×2 (04:53→10:15)
[2016-07-30] MEDS ORDERED: LOSARTAN POTASSIUM 25 MG PO SCH (09:00)
[2016-07-30] MEDS ORDERED: PARoxetine HCL 10 MG TABLET PO SCH (09:00)
[2016-07-30] MEDS ORDERED: PAROXETINE HCL 20 MG PO SCH (09:00)
[2016-07-30] MEDS: CARVEDILOL 6.25 MG TABLET PO SCH ×2 (09:05→21:19)
[2016-07-30] MEDS: CHOLECALCIFEROL 1,000 UNIT TABLET PO SCH (09:50)
[2016-07-30] MEDS: ASPIRIN 81 MG CHEW TAB PO SCH (10:02)
[2016-07-30] MEDS: DOCUSATE SODIUM 100 MG CAPSULE PO SCH (10:03)
[2016-07-30] MEDS: QUEtiapine FUMARATE 25 MG TABLET PO SCH ×2 (10:04→21:18)
[2016-07-30] MEDS: CLOPIDOGREL BISULFATE 75 MG TABLET PO SCH (10:06)
[2016-07-30] MEDS: ACETAMINOPHEN 325 MG TABLET PO PRN ×2 (10:55→15:04)
[2016-07-30] MEDS: POLYETHYLENE GLYCOL 3350 17 GM POWD.PACK PO SCH (11:00)
[2016-07-30] MEDS: ENOXAPARIN SODIUM 30 MG/0.3 ML DISP.SYRIN SQ SCH (18:43)
[2016-07-30] MEDS: ATORVASTATIN CALCIUM 80 MG TABLET PO SCH (21:17)
[2016-07-30] MEDS: rOPINIRole HCL 1 MG TABLET PO SCH (21:18)
[2016-07-31] MEDS: traMADol HCL 50 MG TABLET PO PRN ×2 (00:48→20:07)
[2016-07-31] MEDS: ASPIRIN 81 MG CHEW TAB PO SCH (10:33)
[2016-07-31] MEDS: DOCUSATE SODIUM 100 MG CAPSULE PO SCH (10:33)
[2016-07-31] MEDS: CHOLECALCIFEROL 1,000 UNIT TABLET PO SCH (10:34)
[2016-07-31] MEDS: CARVEDILOL 6.25 MG TABLET PO SCH ×2 (10:34→20:07)
[2016-07-31] MEDS: PARoxetine HCL 10 MG TABLET PO SCH (10:35)
[2016-07-31] MEDS: CLOPIDOGREL BISULFATE 75 MG TABLET PO SCH (10:35)
[2016-07-31] MEDS: QUEtiapine FUMARATE 25 MG TABLET PO SCH ×2 (10:35→20:07)
[2016-07-31] MEDS: LOSARTAN POTASSIUM 50 MG TABLET PO SCH (10:35)
[2016-07-31] MEDS: POLYETHYLENE GLYCOL 3350 17 GM POWD.PACK PO SCH (10:35)
--- NOTE | 2016-07-31 10:39 | Inpatient Progress Note ---
Subjective - Required Recertification Statement I anticipate X number of days because-include discharge plan: 10 - Review of Systems Events since last encounter: Patient continues to do well at this time. Patient is not have any pain associated with her forearm fracture. Patient amatory ability is improving. Patient does feel stronger and steadier with her gait. Objective - Exam Vitals and I&O: Vital Signs Temp 97.6 F 07/31/16 09:00 Pulse 90 07/31/16 09:00 Resp 16 07/31/16 09:00 BP 103/79 07/31/16 09:00 Pulse Ox 92 07/31/16 09:00 Intake & Output 07/30/16 07/30/16 07/31/16 11:59 23:59 11:59 Intake Total 120 840 600 Balance 120 840 600 Intake: Oral 120 840 600 Other: Voiding Method Diaper # Voids 3 4 # Bowel Movements 0 General: Alert, Oriented to Person, Oriented to Place, Oriented to Time, Cooperative, No acute distress Neck: Supple Lungs: Clear to auscultation, Normal air movement, Speaks full Sentences, Respiratory Distress. No: Wheezes, Rales, Rhonchi, Stridor Cardiovascular: Regular rate, Normal S1, Normal S2, Regularly Irregular Abdomen: Normal bowel sounds Extremities: No clubbing, No cyanosis, Other (edema to the leg is improved) Skin: Normal Psych/Mental Status: Mental status NL, Mood NL, Appropriate Affect, Intact Judgment Assessment/Plan - Assessment/Plan (1) Left forearm fracture Status: Acute Assessment: short arm cast replaced (2) Edema of left lower extremity Status: Acute (3) CVA (cerebral vascular accident) Status: Acute Qualifiers: CVA mechanism: occlusion Laterality of affected vessel: right (4) Gait disturbance Status: Acute (5) Hypertension Status: Chronic Qualifiers: Hypertension type: essential hypertension Qualified Code(s): I10 - Essential (primary) hypertension
[2016-07-31] MEDS: ACETAMINOPHEN 325 MG TABLET PO PRN ×2 (11:55→20:07)
[2016-07-31] MEDS: ENOXAPARIN SODIUM 30 MG/0.3 ML DISP.SYRIN SQ SCH (17:38)
[2016-07-31] MEDS: rOPINIRole HCL 1 MG TABLET PO SCH (20:07)
[2016-07-31] MEDS: ATORVASTATIN CALCIUM 80 MG TABLET PO SCH (20:07)
[2016-07-31] MEDS: ZOLPIDEM TARTRATE 5 MG TABLET PO PRN (20:07)
[2016-08-01] MEDS: traMADol HCL 50 MG TABLET PO PRN ×3 (02:17→21:17)
[2016-08-01] MEDS: ACETAMINOPHEN 325 MG TABLET PO PRN ×3 (02:17→21:17)
--- NOTE | 2016-08-01 05:55 | Diagnostic Imaging Report ---
[facility]G~ [facility] [address] [facility].[address] [id number] ~ ~ ~ ~ Report Submission Date: Jul 31, 2016 2:00:19 PM CDT Patient ~ Study Name: MILEY MARTINEZ ~ Date: Jul 31, 2016 10:17:31 AM CDT ~ Modality Type: CR Gender: F ~ Description: UPPER EXTREMITY : 53 ~ Institution: [facility] Physician: [facility] ~ ~ ~ ~ Left wrist- three views Clinical history: ~Follow up wrist fracture. Findings: ~Examination left wrist in palmar, lateral and oblique views demonstrates overlying fiberglass cast obscuring some of the bony detail. ~ There is a fracture of the distal radius with lateral displacement of the distal fracture fragment by 5 mm. ~There is a nondisplaced fracture of the ulnar styloid. ~Radiocarpal relationship is maintained. Impression: 1. ~Casted fractures of the distal radius and ulna. ~ Electronically signed on Jul 31, 2016 2:00:19 PM CDT by: Carter ANDERSON
[2016-08-01] MEDS: ASPIRIN 81 MG CHEW TAB PO SCH (09:27)
[2016-08-01] MEDS: CARVEDILOL 6.25 MG TABLET PO SCH ×2 (09:28→21:15)
[2016-08-01] MEDS: LOSARTAN POTASSIUM 50 MG TABLET PO SCH (09:32)
[2016-08-01] MEDS: QUEtiapine FUMARATE 25 MG TABLET PO SCH ×2 (09:33→21:15)
[2016-08-01] MEDS: CLOPIDOGREL BISULFATE 75 MG TABLET PO SCH (09:33)
[2016-08-01] MEDS: PARoxetine HCL 10 MG TABLET PO SCH (09:33)
[2016-08-01] MEDS: CHOLECALCIFEROL 1,000 UNIT TABLET PO SCH (09:33)
[2016-08-01] MEDS: DOCUSATE SODIUM 100 MG CAPSULE PO SCH (09:39)
[2016-08-01] MEDS: POLYETHYLENE GLYCOL 3350 17 GM POWD.PACK PO SCH (11:35)
[2016-08-01] MEDS: ENOXAPARIN SODIUM 30 MG/0.3 ML DISP.SYRIN SQ SCH (18:16)
[2016-08-01] MEDS: rOPINIRole HCL 1 MG TABLET PO SCH (21:15)
[2016-08-01] MEDS: ATORVASTATIN CALCIUM 80 MG TABLET PO SCH (21:15)
[2016-08-01] MEDS: ZOLPIDEM TARTRATE 5 MG TABLET PO PRN (21:17)
[2016-08-02] MEDS: DOCUSATE SODIUM 100 MG CAPSULE PO SCH (09:27)
[2016-08-02] MEDS: ASPIRIN 81 MG CHEW TAB PO SCH (09:27)
[2016-08-02] MEDS: CARVEDILOL 6.25 MG TABLET PO SCH ×2 (09:27→21:14)
[2016-08-02] MEDS: LOSARTAN POTASSIUM 50 MG TABLET PO SCH (09:28)
[2016-08-02] MEDS: PARoxetine HCL 10 MG TABLET PO SCH (09:28)
[2016-08-02] MEDS: CLOPIDOGREL BISULFATE 75 MG TABLET PO SCH (09:28)
[2016-08-02] MEDS: QUEtiapine FUMARATE 25 MG TABLET PO SCH ×2 (09:28→21:15)
[2016-08-02] MEDS: CHOLECALCIFEROL 1,000 UNIT TABLET PO SCH (09:29)
[2016-08-02] MEDS: ACETAMINOPHEN 325 MG TABLET PO PRN ×2 (09:40→21:14)
[2016-08-02] MEDS: POLYETHYLENE GLYCOL 3350 17 GM POWD.PACK PO SCH (13:10)
[2016-08-02] MEDS: traMADol HCL 50 MG TABLET PO PRN ×2 (13:13→21:15)
[2016-08-02] MEDS: ENOXAPARIN SODIUM 30 MG/0.3 ML DISP.SYRIN SQ SCH (18:55)
[2016-08-02] MEDS: ZOLPIDEM TARTRATE 5 MG TABLET PO PRN (21:14)
[2016-08-02] MEDS: ATORVASTATIN CALCIUM 80 MG TABLET PO SCH (21:14)
[2016-08-02] MEDS: rOPINIRole HCL 1 MG TABLET PO SCH (21:15)
[2016-08-03 07:02] LABS: BASOPHILS % 0.5 (0.0-1.5); EOSINOPHILS % 5.7 % (0.0-6.8); MEAN CORPUSCULAR HEMOGLOBIN 26.5 pg (28.0-34.0); MEAN CORPUSCULAR VOLUME 86.7 fl (80.0-100.0); MONOCYTES % 4.3 % (0.0-11.0); NEUTROPHILS # 3.2 # k/uL (1.4-7.7)
[2016-08-03 07:15] LABS: eGFR (African) > 60; eGFR (Non-African) > 60
[2016-08-03] MEDS: CARVEDILOL 6.25 MG TABLET PO SCH ×2 (08:15→20:47)
[2016-08-03] MEDS: LOSARTAN POTASSIUM 50 MG TABLET PO SCH (08:15)
[2016-08-03] MEDS: ASPIRIN 81 MG CHEW TAB PO SCH (08:15)
[2016-08-03] MEDS: DOCUSATE SODIUM 100 MG CAPSULE PO SCH (08:15)
[2016-08-03] MEDS: CLOPIDOGREL BISULFATE 75 MG TABLET PO SCH (08:16)
[2016-08-03] MEDS: PARoxetine HCL 10 MG TABLET PO SCH (08:16)
[2016-08-03] MEDS: QUEtiapine FUMARATE 25 MG TABLET PO SCH ×2 (08:16→20:48)
[2016-08-03] MEDS: POLYETHYLENE GLYCOL 3350 17 GM POWD.PACK PO SCH (10:13)
[2016-08-03] MEDS: CHOLECALCIFEROL 1,000 UNIT TABLET PO SCH (12:22)
[2016-08-03] MEDS: ACETAMINOPHEN 325 MG TABLET PO PRN (12:29)
[2016-08-03] MEDS: traMADol HCL 50 MG TABLET PO PRN ×2 (15:19→20:47)
--- NOTE | 2016-08-03 15:40 | Diagnostic Imaging Report ---
[facility] [address] [facility].[address] [address] Report Submission Date: Aug 03, 2016 2:52:07 PM CDT Patient Study Name: MILEY MARTINEZ Date: Aug 03, 2016 2:24:27 PM CDT Modality Type: CT\SR Gender: F Description: CT LEG W/O CONTRAST : 53 Institution: [facility] Physician: RUDDY MEJÍA/BRANDIN SURG CT of the left lower extremity without contrast CLINICAL HISTORY: Fall last week. Swelling and warmth. TECHNIQUE: CT of the left knee is performed in contiguous axial slices with sagittal and coronal reconstructions. FINDINGS: Bony structures are intact. There is a large amount of fluid in the prepatellar bursa. Fluid has a density consistent with simple fluid collection although is mildly inhomogeneous. This could represent a small amount of resolving hemorrhage. There is no evident joint effusion or popliteal cyst. Patella tracks normally in the intercondylar fossa. There is mild stranding of the subcutaneous fat adjacent to the prepatellar bursa and skin thickening also suggesting inflammation or edema. IMPRESSION: Fluid in the prepatellar bursa consistent with bursitis. This fluid is mildly inhomogeneous and may represent a small amount of hemorrhage although the fluid is basically of water density. Skin thickening and subcutaneous stranding consistent with edema or inflammation. Electronically signed on Aug 03, 2016 2:52:07 PM CDT by: Carter ANDERSON
[2016-08-03] MEDS: ENOXAPARIN SODIUM 30 MG/0.3 ML DISP.SYRIN SQ SCH (20:47)
[2016-08-03] MEDS: ATORVASTATIN CALCIUM 80 MG TABLET PO SCH (20:48)
[2016-08-03] MEDS: rOPINIRole HCL 1 MG TABLET PO SCH (20:49)
[2016-08-03] MEDS: ZOLPIDEM TARTRATE 5 MG TABLET PO PRN (20:50)
[2016-08-04] MEDS: traMADol HCL 50 MG TABLET PO PRN ×3 (05:59→20:59)
[2016-08-04] MEDS: CHOLECALCIFEROL 1,000 UNIT TABLET PO SCH (08:57)
[2016-08-04] MEDS: LOSARTAN POTASSIUM 50 MG TABLET PO SCH (08:57)
[2016-08-04] MEDS: ASPIRIN 81 MG CHEW TAB PO SCH (08:58)
[2016-08-04] MEDS: PARoxetine HCL 10 MG TABLET PO SCH (08:58)
[2016-08-04] MEDS: CLOPIDOGREL BISULFATE 75 MG TABLET PO SCH (08:58)
[2016-08-04] MEDS: DOCUSATE SODIUM 100 MG CAPSULE PO SCH (08:58)
[2016-08-04] MEDS: QUEtiapine FUMARATE 25 MG TABLET PO SCH ×2 (08:59→21:03)
[2016-08-04] MEDS: CARVEDILOL 6.25 MG TABLET PO SCH ×2 (09:03→21:03)
[2016-08-04] MEDS: ACETAMINOPHEN 325 MG TABLET PO PRN (09:04)
[2016-08-04] MEDS: POLYETHYLENE GLYCOL 3350 17 GM POWD.PACK PO SCH (10:57)
[2016-08-04] MEDS: ENOXAPARIN SODIUM 30 MG/0.3 ML DISP.SYRIN SQ SCH (20:59)
[2016-08-04] MEDS: ATORVASTATIN CALCIUM 80 MG TABLET PO SCH (21:02)
[2016-08-04] MEDS: rOPINIRole HCL 1 MG TABLET PO SCH (21:03)
[2016-08-04] MEDS: ZOLPIDEM TARTRATE 5 MG TABLET PO PRN (21:04)
[2016-08-05] MEDS: traMADol HCL 50 MG TABLET PO PRN ×2 (05:21→17:59)
[2016-08-05] MEDS: ASPIRIN 81 MG CHEW TAB PO SCH (13:24)
[2016-08-05] MEDS: DOCUSATE SODIUM 100 MG CAPSULE PO SCH (13:24)
[2016-08-05] MEDS: CARVEDILOL 6.25 MG TABLET PO SCH ×2 (13:25→20:03)
[2016-08-05] MEDS: LOSARTAN POTASSIUM 50 MG TABLET PO SCH (13:26)
[2016-08-05] MEDS: CLOPIDOGREL BISULFATE 75 MG TABLET PO SCH (13:27)
[2016-08-05] MEDS: PARoxetine HCL 10 MG TABLET PO SCH (13:27)
[2016-08-05] MEDS: QUEtiapine FUMARATE 25 MG TABLET PO SCH ×2 (13:28→20:03)
[2016-08-05] MEDS: CHOLECALCIFEROL 1,000 UNIT TABLET PO SCH (13:28)
[2016-08-05] MEDS: POLYETHYLENE GLYCOL 3350 17 GM POWD.PACK PO SCH (13:33)
[2016-08-05] MEDS: ENOXAPARIN SODIUM 30 MG/0.3 ML DISP.SYRIN SQ SCH (18:13)
[2016-08-05] MEDS: ATORVASTATIN CALCIUM 80 MG TABLET PO SCH (20:04)
[2016-08-05] MEDS: rOPINIRole HCL 1 MG TABLET PO SCH (20:04)
[2016-08-06] MEDS: DOCUSATE SODIUM 100 MG CAPSULE PO SCH (09:13)
[2016-08-06] MEDS: ASPIRIN 81 MG CHEW TAB PO SCH (09:13)
[2016-08-06] MEDS: CARVEDILOL 6.25 MG TABLET PO SCH ×2 (09:13→20:23)
[2016-08-06] MEDS: LOSARTAN POTASSIUM 50 MG TABLET PO SCH (09:14)
[2016-08-06] MEDS: PARoxetine HCL 10 MG TABLET PO SCH (09:14)
[2016-08-06] MEDS: CHOLECALCIFEROL 1,000 UNIT TABLET PO SCH (09:15)
[2016-08-06] MEDS: CLOPIDOGREL BISULFATE 75 MG TABLET PO SCH (09:15)
[2016-08-06] MEDS: QUEtiapine FUMARATE 25 MG TABLET PO SCH ×2 (09:15→20:23)
[2016-08-06] MEDS: POLYETHYLENE GLYCOL 3350 17 GM POWD.PACK PO SCH (10:51)
[2016-08-06] MEDS: traMADol HCL 50 MG TABLET PO PRN (11:18)
[2016-08-06] MEDS: ACETAMINOPHEN 325 MG TABLET PO PRN ×2 (11:18→18:25)
[2016-08-06] MEDS: ENOXAPARIN SODIUM 30 MG/0.3 ML DISP.SYRIN SQ SCH (18:27)
[2016-08-06] MEDS: rOPINIRole HCL 1 MG TABLET PO SCH (20:23)
[2016-08-06] MEDS: ATORVASTATIN CALCIUM 80 MG TABLET PO SCH (20:23)
[2016-08-06] MEDS: ZOLPIDEM TARTRATE 5 MG TABLET PO PRN (20:24)
[2016-08-07] MEDS: ASPIRIN 81 MG CHEW TAB PO SCH (07:49)
[2016-08-07] MEDS: CARVEDILOL 6.25 MG TABLET PO SCH (07:49)
[2016-08-07] MEDS: PARoxetine HCL 10 MG TABLET PO SCH (07:49)
[2016-08-07] MEDS: DOCUSATE SODIUM 100 MG CAPSULE PO SCH (07:49)
[2016-08-07] MEDS: LOSARTAN POTASSIUM 50 MG TABLET PO SCH (07:50)
[2016-08-07] MEDS: QUEtiapine FUMARATE 25 MG TABLET PO SCH (07:51)
[2016-08-07] MEDS: traMADol HCL 50 MG TABLET PO PRN (07:51)
[2016-08-07] MEDS: CLOPIDOGREL BISULFATE 75 MG TABLET PO SCH (07:51)
[2016-08-07] MEDS: CHOLECALCIFEROL 1,000 UNIT TABLET PO SCH (07:52)
[2016-08-07] MEDS: POLYETHYLENE GLYCOL 3350 17 GM POWD.PACK PO SCH (11:46)
[2016-08-07 15:48] VITALS: BP 153/69
--- NOTE | 2016-09-19 08:21 | Discharge Summary ---
Discharge Summary - Discharge Sumary History of Present Illness: 60yo white female with a history of SVA to the basal ganglia area. Patient present to [facility] ED at [facility] [place] with frequent falls, unsteady gait and lower extremiy pain. 3 week prior to admission patient had fallen and sustained a communated left distal radial fracture. Patient was admitted and treated for fall, no specific etiology found. Patient did have some delirium which is improved, HTN stable, LLE edema negative for DVT. Patient was transfered to this institution for further rehab services. Condition at Discharge: Stable Home Medications: Ambulatory Orders Medication Instructions Recorded Acetaminophen [Tylenol] 650 mg PO Q4 PRN 03/13/16 Aspirin [Staci] 81 mg PO DAILY 03/13/16 Atorvastatin Calcium 20 mg PO 1700 03/13/16 Cholecalciferol [Vitamin D-3] 5,000 unit PO DAILY 03/13/16 Docusate Sodium [Colace] 100 mg PO DAILY 03/13/16 Losartan Potassium [Cozaar] 25 mg PO D 03/13/16 Paroxetine HCl 20 mg PO D 03/13/16 Polyethylene Glycol 3350 [Miralax] 17 gm PO 1100 03/13/16 Tramadol HCl [Ultram] 50 mg PO Q6 PRN 03/13/16 Clopidogrel Bisulfate [Plavix] 75 mg PO DAILY #90 tablet 08/07/16 Zolpidem Tartrate [Ambien] 5 mg PO HS PRN #30 tablet 08/07/16 rOPINIRole HCL [Requip] 0.25 mg PO HS #30 tablet 08/07/16 Consultations this Visit: Other (orthopedics) Procedures this Visit: None Allergies/Adverse Reactions: Allergies Allergy/AdvReac Type Severity Reaction Status Date / Time HIREN Inhibitors AdvReac Headache Verified 07/29/16 18:06 Discharge Summary: Patient did well with her rehab services. Patient progressed well with her physical and occupational therapy. Patient vital signs and other medical problems remain stable. Patient did have a loose cast on her forearm. This was removed and a another cast was placed. - Final Diagnosis (1) Gait disturbance Problems: improved (2) Left forearm fracture Problems: stable and healing (3) Edema of left lower extremity Problems: improved (4) CVA (cerebral vascular accident) Problems: stable with no change in neuro deficit
== END 2016-08-07 12:30 | disposition home or self-care (01) | DRG 561 ==
LOC: SOUTH 15:57
PROVIDERS: ADMIT Family Medicine; ATTEND Family Medicine
DX: S52.92XD Unspecified fracture of left forearm, subsequent encounter for closed fracture with routine healing (principal); R53.1 Weakness; W19.XXXD Unspecified fall, subsequent encounter; Z91.81 History of falling; R60.1 Generalized edema; Z86.73 Personal history of transient ischemic attack (TIA), and cerebral infarction without residual deficits
CPT/HCPCS: 36415; 73110; 73700; 80053; 85025; J1650